=== PATIENT | female | born 1945 | race Caucasian/White ===

== ENCOUNTER → 2023-06-12 12:46 | Outpatient (REF) | payer MEDICARE, OTHER, SELFPAY ==
[2023-06-12 16:11] LABS: Blood Urea Nitrogen 29 mg/dl (7-17); Calcium 9.2 mg/dl (8.4-10.2); Carbon Dioxide 32 mmol/L (22-30); Chloride 99 mmol/L (98-107); Glucose 129 mg/dl (70-99); Potassium 4.3 mmol/L (3.5-5.1); Sodium 137 mmol/L (135-145); eGFR > 60.00
[2023-06-12 16:45] LABS: Urine Protein < 5 mg/dl
== END ==
LOC: HWLAB 12:46
PROVIDERS: ATTENDING PHYSICIAN Specialist; FAMILY PHYSICIAN Internal Medicine Rheumatology
DX: R79.89 Other specified abnormal findings of blood chemistry (principal); M54.2 Cervicalgia
CPT/HCPCS: 36415; 72050; 80048; 82570; 84156

== ENCOUNTER → 2024-03-26 10:30 | Outpatient (REF) | payer MEDICARE, OTHER, SELFPAY | LOC: MRI 3T 10:30 | PROVIDERS: ATTENDING PHYSICIAN Internal Medicine Rheumatology; FAMILY PHYSICIAN Family Medicine | DX: M54.2 Cervicalgia (principal) | CPT/HCPCS: 72141 ==

== ENCOUNTER 2024-04-28 13:43 | Emergency (ER) | payer MEDICARE, OTHER, SELFPAY ==
[2024-04-28 13:50] VITALS: BP 117/65
[2024-04-28 14:27] LABS: % Basophils 0.8 % (0-2); % Eosinophils 1.8 % (0-6); % Immature Granulocytes 0.3 % (0-0.5); % Lymphocytes 48.4 % (20.5-51.1); % Monocytes 8.4 % (1.7-9.3); % Neutrophils 40.3 % (42.2-75.2); Absolute Basophils 0.1 10^3/uL (0-0.2); Absolute Eosinophils 0.1 10^3/uL (0-0.7); Absolute Lymphocytes 3.7 10^3/uL (1.2-3.4); Absolute Monocytes 0.6 10^3/uL (0.1-0.6); Absolute Neutrophils 3.1 10^3/uL (1.4-6.5); Hematocrit 38.2 % (37.0-47.0); Hemoglobin 12.2 g/dL (12.0-16.0); Mean Corp Hgb Conc. 31.9 g/dL (33.0-37.0); Mean Corpuscular Hgb 31.2 pg (27.0-31.0); Mean Corpuscular Volume 97.7 fL (81.0-99.0); Mean Platelet Volume 9.2 fL (7.4-10.4); Nucleated Red Blood Cells % 0 %; Platelet Count 257 10^3/uL (130-400); Red Blood Cell Count 3.91 10^6/uL (4.20-5.40); Red Cell Dist. Width 13.2 % (11.5-14.5); White Blood Cell Count 7.6 10^3/uL (4.8-10.8)
[2024-04-28 14:32] LABS: Glucose - Point of Care 100 mg/dl (70-99)
[2024-04-28 14:44] LABS: ALT (SGPT) 12 U/L (0-35); AST (SGOT) 19 U/L (14-36); Albumin 4.3 g/dl (3.5-5.0); Alkaline Phosphatase 52 U/L (38-126); Blood Urea Nitrogen 26 mg/dl (7-17); Calcium 9.4 mg/dl (8.4-10.2); Carbon Dioxide 32 mmol/L (22-30); Chloride 98 mmol/L (98-107); Glucose 139 mg/dl (70-99); Potassium 4.7 mmol/L (3.5-5.1); Sodium 139 mmol/L (135-145); Total Bilirubin 0.9 mg/dl (0.2-1.3); Total Protein 6.9 g/dl (6.3-8.2); eGFR > 60.00
[2024-04-28 15:24] VITALS: BP 128/63
--- NOTE | 2024-04-28 16:41 | ED.GENMED ---
History of Present Illness
General
Chief Complaint: Fainting/Passed Out
Time Seen by Provider: 04/28/24 15:39
History of Present Illness
History of Present Illness:
79-year-old female with history of gkd-woilmyp-hveoxusjv diabetes and hypertension presents to the emergency department for evaluation of headaches as well as left hip pain after a fall 3 days ago. States she got up at night to use the restroom and
may have lost consciousness, fell to the ground and hit her face off of porcelain tile. She has had headaches since but denies any vision changes, neck pain, or vomiting. She is also complaining of left hip pain, bilateral total hip replacements
done in 2008 by [facility]. She is able to ambulate with walker assistance
Past History
Past History
ED Past Medical History: NIDDM
Review of Systems
Review of Systems
Allergies reviewed?: Yes
All Other Systems: ROS reviewed and negative except as documented in HPI and ROS
Phy Exam
Physical Exam
Physical Exam:
GEN: Well appearing, NAD, WDWN
HEENT: Mild ecchymosis above the right orbit with no deformity, oral mucosa moist, no scleral icterus, no nasal congestion
Cardiac: Regular rate
Lung: No respiratory distress, no tachypnea
MSK: No gross deformity or injuries. Left hip range of motion is normal, mild greater trochanteric tenderness on the left
Skin: Good color, no pallor or jaundice, no rashes
Neuro: AO x3; CN II-XII grossly intact. BUE strength 5/5 in all green, sensation intact and symmetric. BLE strength 5/5 in all green, sensation intact and symmetric
Psych: Calm, cooperative
Course
Orders/Labs/Results
Orders:
Orders
04/28/24 13:56
Electrocardiogram (*1) Urgent
Reason for Study: Chest Pain
EKG- Treatment ONCE
CR Hip - LT w/wo Pel 2-3 Vw* Urgent
Comment:
Reason For Exam: fall
Include a pelvis x-ray?: Yes
04/28/24 14:01
Complete Blood Count/With Diff Urgent
Comprehensive Metabolic Panel Urgent
04/28/24 16:12
CT Head W/o Iv Contrast Urgent
Comment:
Reason For Exam: fall head injury
Abnormal Lab Results
04/28/24 04/28/24
14:01 14:30
RBC 3.91 L 10^6/uL
(4.20-5.40)
MCH 31.2 H pg
(27.0-31.0)
MCHC 31.9 L g/dL
(33.0-37.0)
Absolute Lymphs (auto) 3.7 H 10^3/uL
(1.2-3.4)
Neutrophils % 40.3 L %
(42.2-75.2)
Carbon Dioxide 32 H mmol/L
(22-30)
BUN 26 H mg/dl
(7-17)
Glucose 139 H mg/dl
(70-99)
POC Glucose 100 H mg/dl
(70-99)
04/28/24 14:01
04/28/24 14:01
Vital Signs
Initial and Last Documented VS:
Initial Vital Signs
Temp Pulse Resp BP Pulse Ox
98.1 F 84 20 117/65 97
04/28/24 13:50 04/28/24 13:50 04/28/24 13:50 04/28/24 13:50 04/28/24 13:50
Last Documented Vital Signs
Temp Pulse Resp BP Pulse Ox
98.1 F 85 18 130/64 96
04/28/24 13:50 04/28/24 17:12 04/28/24 17:12 04/28/24 17:12 04/28/24 17:12
MDM/Problems Addressed
MDM/Problems Addressed:
CT of the head is negative for acute intracranial hemorrhage. X-ray of the left hip does show a mild periprosthetic fracture. Images were reviewed with orthopedics on-call who advises patient can perform weightbearing as tolerated and follow-up
with outpatient orthopedics for reevaluation
*Critical Care Note
Total Time (30-74mins, 75-104mins- exclusive of procedures): Not Applicable
ED Attending Note
-
Portions of this chart may have been created with voice recognition software.� Occasional wrong word or��sound alike� substitutions may have occurred due to the inherent limitations of voice recognition software.
Discharge Plan
Departure
Patient Disposition: Home (Routine Discharge)
Date of Disposition: 04/28/24
Time of Disposition: 16:56
Patient with high blood pressure during this ER visit?: No
Discharge Problem:
Periprosthetic fracture around internal prosthetic left hip joint
Instructions: Anterior Total Hip Exercises
Prescriptions:
New
diclofenac sodium 75 mg tablet,delayed release (DR/EC)
75 mg PO BID Qty: 14 0RF
Referrals:
Ramses Martinez DO [Family Provider] -
Héctor Ferreira MD [Active] -
Activity Restrictions/Additional Instructions:
Call the [facility] team tomorrow for follow up appointment
Interventions
Interventions:
*Risk Screen - Suicide Last Done: 04/28/24 13:50
*General Assessment Last Done: 04/28/24 13:50
*Neglect/Abuse Screening Last Done: 04/28/24 13:50
*ED COVID-19 Vaccine History Last Done: 04/28/24 14:34
*Nursing Disposition Last Done: 04/28/24 17:12
ED- Cardiac Assessment Last Done: 04/28/24 14:36
ED-Musculoskeletal Assessment Last Done: 04/28/24 14:36
ED- Neurological Assessment Last Done: 04/28/24 14:36
ED-Skin Assessment Last Done: 04/28/24 14:36
Discharge Date and Time
Discharge Date/Time: 04/28/24 17:12
Print Language: TELUGU
[2024-04-28 17:12] VITALS: BP 130/64
== END 2024-04-28 17:12 | disposition home or self-care (01) ==
LOC: EMR 13:43
PROVIDERS: Emergency Medicine; EMERGENCY PHYSICIAN Student in an Organized Health Care Education/Training Program; FAMILY PHYSICIAN Family Medicine
DX: M97.02XA Periprosthetic fracture around internal prosthetic left hip joint, initial encounter (principal); W19.XXXA Unspecified fall, initial encounter; E11.9 Type 2 diabetes mellitus without complications; I10 Essential (primary) hypertension
CPT/HCPCS: 99284; 70450; 73502; 80053; 82962; 85025; 93005

== ENCOUNTER 2024-09-15 07:50 | Inpatient (IN) | payer MEDICARE, OTHER, SELFPAY ==
[2024-09-14 17:16] VITALS: BP 152/93
[2024-09-14 17:32] VITALS: BMI 47.2
[2024-09-14 18:01] LABS: Hematocrit 36.5 % (37.0-47.0); Hemoglobin 12.1 g/dL (12.0-16.0); Mean Corp Hgb Conc. 33.2 g/dL (33.0-37.0); Mean Corpuscular Hgb 31.3 pg (27.0-31.0); Mean Corpuscular Volume 94.3 fL (81.0-99.0); Mean Platelet Volume 9.3 fL (7.4-10.4); Platelet Count 202 10^3/uL (130-400); Red Blood Cell Count 3.87 10^6/uL (4.20-5.40); Red Cell Dist. Width 14.3 % (11.5-14.5); White Blood Cell Count 6.2 10^3/uL (4.8-10.8)
[2024-09-14 18:13] LABS: ALT (SGPT) 16 U/L (0-35); AST (SGOT) 21 U/L (14-36); Alkaline Phosphatase 50 U/L (38-126); Blood Urea Nitrogen 28 mg/dl (7-17); Carbon Dioxide 26 mmol/L (22-30); Chloride 107 mmol/L (98-107); Estimated Creatinine Clearance 72 ml/min; Glucose 137 mg/dl (70-99); Potassium 4.3 mmol/L (3.5-5.1); Sodium 139 mmol/L (135-145); Total Bilirubin 1.1 mg/dl (0.2-1.3); Total Protein 6.4 g/dl (6.3-8.2); eGFR > 60.00
[2024-09-14 18:21] LABS: % Basophils 0.5 % (0-2); % Eosinophils 1.9 % (0-6); % Immature Granulocytes 0.3 % (0-0.5); % Lymphocytes 51.1 % (20.5-51.1); % Monocytes 8.9 % (1.7-9.3); % Neutrophils 37.3 % (42.2-75.2); Absolute Eosinophils 0.1 10^3/uL (0-0.7); Absolute Lymphocytes 3.2 10^3/uL (1.2-3.4); Absolute Monocytes 0.6 10^3/uL (0.1-0.6); Absolute Neutrophils 2.3 10^3/uL (1.4-6.5); Nucleated Red Blood Cells % 0 %
[2024-09-14 18:23] LABS: NT-proBNP 2150 pg/ml; Troponin I < 0.012 ng/ml
--- NOTE | 2024-09-14 18:31 | ED.GENMED ---
History of Present Illness
General
Chief Complaint: Breathing Problem
Source: patient and spouse
Exam Limitations: none
Time Seen by Provider: 09/14/24 17:36
Nursing documentation reviewed up to this point in time: agreed with
History of Present Illness
History of Present Illness:
79-year-old female hypertensive diabetic chronic pain syndrome presents with shortness of breath dyspnea on exertion orthopnea, onset a week or 2 ago, worsened today she called her prior revenue specialist unable to be seen in 4 months, no chest pain but
does have shortness of breath with any exertion, leg edema and weight gain not currently on a diuretic, not currently on a blood pressure pill, patient is having intermittent fast and slow heart rates no history of AF
Past History
Past History
ED Past Medical History: HTN and NIDDM; Negative Arrthythmia or Valvular disease
Social History
Tobacco: Non-smoker
Alcohol: None
Drug: None
Personal:
Living: with family
Employment: Retired
Review of Systems
Review of Systems
All Other Systems: Not applicable
Constitutional: Reports fatigue; Denies fever
Respiratory: Reports cough and trouble breathing
ABD/GI: Reports no symptoms; Denies abdominal pain
Musculoskeletal: Reports edema
Skin: Reports no symptoms
Neurological: Reports no symptoms
Endocrine: Reports no symptoms
Hematologic/Lymphatic: Reports no symptoms
Psychiatric: Reports no symptoms
Phy Exam
Physical Exam
Physical Exam:
Physical Exam
General: 79-year-old female sitting upright coughing close distant
Neck: JVD
Heart: Regular systolic ejection
Lungs: Bibasilar crackle
Abdomen: Nontender
Neuro: alert and oriented. no focal neurological deficits
Skin: no rash
Psychiatric: well kept. interactive and cooperative
Extremities: Edema is present
Scores
Heart Failure Risk
Heart Failure Risk Score: Yes
History of Stroke or TIA: No
History of intubation for respiratory distress: No
Heart rate on ED arrival >/= 110: Yes
SaO2 <90% on arrival on room air: No
HR >/=110 during 3min walk test (or too ill to perform test): Yes
ECG has acute ischemic changes: No
Urea >/=12mmol/L (BUN 33.6mg/dL): No
Serum CO2>/=35mmol/L: No
Troponin I or T elevated to DC Level (0.4mg/dL): No
NT-proBNP >/=5,000ng/L (5,000pg/ml): No
HF Risk Score: 2
Admission Status: MEDIUM RISK 9.2% Consider observation or discharge to home with homecare & f/u visit to PCP/Tube Drawing Supervisor, or SNF for treatment
Course
Orders/Labs/Results
Orders:
Orders
09/14/24 17:12
Electrocardiogram (*1) Urgent
Reason for Study: Tachycardia
EKG- Treatment ONCE
09/14/24 17:35
CR Chest - 2 Views Urgent
Comment:
Reason For Exam: soob
09/14/24 17:50
Complete Blood Count/With Diff Urgent
Comprehensive Metabolic Panel Urgent
NT-proBNP Urgent
Troponin I Urgent
09/14/24 18:24
Furosemide [Lasix] 60 mg IV NOW STA
Abnormal Lab Results
09/14/24
17:50
RBC 3.87 L 10^6/uL
(4.20-5.40)
Hct 36.5 L %
(37.0-47.0)
MCH 31.3 H pg
(27.0-31.0)
Neutrophils % 37.3 L %
(42.2-75.2)
BUN 28 H mg/dl
(7-17)
Glucose 137 H mg/dl
(70-99)
09/14/24 17:50
09/14/24 17:50
Vital Signs
Initial and Last Documented VS:
Initial Vital Signs
Temp Pulse Resp BP Pulse Ox
98.2 F 92 16 152/93 94
09/14/24 17:16 09/14/24 17:16 09/14/24 17:16 09/14/24 17:16 09/14/24 17:16
Last Documented Vital Signs
Temp Pulse Resp BP Pulse Ox
98.2 F 77 24 152/93 97
09/14/24 17:16 09/14/24 18:13 09/14/24 18:00 09/14/24 17:16 09/14/24 18:00
MDM/Problems Addressed
Differential Diagnosis Includes:
Heart failure valvulopathy arrhythmia pneumonia anemia doubt PE
MDM/Problems Addressed:
Shortness of breath
Chronic conditions affecting care: DM and HTN
Acute Exacerbation and/or Progression of Chronic Illness: DM and HTN
*Radiology
Radiology exam reviewed: preliminary read by ED provider
*Pulse Oximetry
Patient hypoxic: no
*EKG
Interpreted by ED Provider?: Yes
Interpretation: abnormal
Rate: tachycardiac
Rhythm: sinus
QRS Pattern: normal QRS
Ischemia: non-specific ST changes
*In Flight Refueling System Repairer Interpretation
Rate: tachycardiac
Interpretation: abnormal
Heart Rate: 130
Rhythm: sinus
*Critical Care Note
Total Time (30-74mins, 75-104mins- exclusive of procedures): 12
Update Note
Update Note:
Update suspect she is volume overloaded plus minus tachycardic at times, believe she requires admission for close cardiac monitoring, sideration for specialty consultation specialized testing,
ED Attending Note
-
Portions of this chart may have been created with voice recognition software.� Occasional wrong word or��sound alike� substitutions may have occurred due to the inherent limitations of voice recognition software.
Discharge Plan
Departure
Patient Disposition: Admit
Date of Disposition: 09/14/24
Time of Disposition: 18:35
Admit to: Telemetry
Presentation/result/management discussed w/ accepting MD/DO: Hospitalist
Patient with high blood pressure during this ER visit?: Yes
Condition: Fair
Discharge Problem:
Shortness of breath
Prescriptions:
No Action
diclofenac sodium 75 mg tablet,delayed release (DR/EC)
75 mg PO BID Qty: 14 0RF
pioglitazone 30 mg Tablet
30 mg PO DAILY
duloxetine 60 mg Capsule,Delayed Release(Dr/Ec)
60 mg PO DAILY
zolpidem 6.25 mg Tablet,Ext Release Multiphase
12.5 mg PO HS PRN (Reason: Insomnia)
Centrum Silver Women 8 mg iron-400 mcg-50 mcg Tablet
1 tab PO DAILY
Interventions
Interventions:
*Risk Screen - Suicide Last Done: 09/14/24 17:19
*General Assessment Last Done: 09/14/24 17:35
*Neglect/Abuse Screening Last Done: 09/14/24 17:19
*ED- Fall Risk Assessment Last Done: 09/14/24 17:35
*ED COVID-19 Vaccine History Last Done: 09/14/24 17:35
ED- Cardiac Assessment Last Done: 09/14/24 17:50
ED- Pulmonary Assessment Last Done: 09/14/24 17:50
Discharge Date and Time
Print Language: ROMANIAN
[2024-09-14 18:35] VITALS: BP 112/61
[2024-09-14] MEDS: LASIX 60 MG IV (18:39)
--- NOTE | 2024-09-14 18:49 | HPS.HSE ---
Family Physician
-
Family Physician: * NONE
Chief Complaint
-
exertional dyspnea
History of Present Illness
Patient is a 79-year-old female with past medical history significant for type 2 diabetes mellitus, insomnia, fibromyalgia, hypertension and Hx pancreatic cyst who presented to [facility] ED exertion dyspnea. Patient reports having exertional dyspnea and
induced cough when walking far for approximately 2 weeks. She also reports intermittent elevated HR. Patient denies any recent illness, fever, chills, chest pain, palpitations, nausea, vomiting, constipation, diarrhea and urinary symptoms.
Medical History
Past Medical History
Past Medical History: Reports Other
Additional Past Medical History:
type 2 diabetes mellitus
insomnia
fibromyalgia
hypertension
Hx pancreatic cyst
Past Surgical History: Reports Other
Additional Past Surgical History:
Bilateral Total Hip Replacement(2008)
Caesarean Section
Cholecystectomy
Sinus Surgery
Endo-biopsy
Social History
Tobacco: Former Smoker (smoked late teens early 20s, quit at age 21 )
Alcohol: None
Drug: None
Personal:
Living: With Family
Employment: Retired
Family History
Family History: Other (Mother: melanoma; Father: [place]; Sister: melanoma and breast cancer )
Allergies / Home Medications
Allergies reflects when Allergies were last updated in [employer].
Home Medications with original date entered in [employer]
Allergy/Medication List:
Allergies
Allergy/AdvReac Type Severity Reaction Status Date / Time
No Known Allergies Allergy Verified 09/14/24 17:30
Home Medications
acetaminophen 325 mg tablet (Tylenol) 650 mg PO Q6HPRN PRN MILD PAIN 09/14/24
duloxetine 60 mg capsule,delayed release 60 mg PO DAILY 09/14/24
magnesium oxide 200 mg PO DAILY 09/14/24
glakafon-brok-lnco 8 mg-folic 400 mcg-K 50 mcg-lutein 300 mcg tablet (Centrum Silver Women) 1 tab PO DAILY 09/14/24
pioglitazone 30 mg tablet 30 mg PO DAILY 09/14/24
zolpidem 6.25 mg tablet,extended release,multiphase 12.5 mg PO HSPRN PRN Insomnia 09/14/24
Review of Systems
-
Respiratory: Reports Cough (dry cough with exertion ) and Trouble Breathing (exertional dyspnea)
Cardiac: Reports Other (elevated HR )
Physical Exam
Vital Signs
Vital Signs
Temp Pulse Resp BP Pulse Ox
98.2 F 71 24 112/61 97
09/14/24 17:16 09/14/24 18:39 09/14/24 18:00 09/14/24 18:39 09/14/24 18:00
Physical Exam
General: Well Developed, Well Nourished, No Apparent Distress, Comfortable, Conversant and Morbidly Obese
HEENT: NormoCephalic, Moist mucous membranes, Atraumatic, [place] Conjunctivae, Nose Appears Normal and Ears Appear Normal
Respiratory: Clear and Other (dyspnea with minimal exertion )
Cardiac: S1/S2, Irregular Rhythm and Tachycardia
Breast: Deferred by me
GI: Soft, Non Tender, Non Distended and Normal Bowel Sounds; No Organomegaly
Rectal: Deferred by Provider
Genito-urinary: Deferred by me
Musculoskeletal: No Clubbing, No Cyanosis, Edema, Left Lower Extremity and Edema, Right Lower Extremity
Skin: IV/Catheter Site
Neuro: Awake, Alert, AO x 3 and Nonfocal/grossly intact
Psych: Calm and Intact Judgment/Insight
Laboratory Results
-
09/14/24 17:50
09/14/24 17:50
Laboratory Results
Total Bilirubin 1.1 mg/dl (0.2-1.3) 09/14/24 17:50
AST 21 U/L (14-36) 09/14/24 17:50
ALT 16 U/L (0-35) 09/14/24 17:50
Alkaline Phosphatase 50 U/L (38-126) 09/14/24 17:50
Troponin I < 0.012 ng/ml 09/14/24 17:50
Data Reviewed
-
Diagnostic Radiology: Report Reviewed by me (CXR: No acute cardiopulmonary process.)
Medical Tests (Nuc Med, Echo, EKG etc): Report Reviewed by me (EKG: SINUS TACHYCARDIA WITH PREMATURE ATRIAL COMPLEXES OTHERWISE NORMAL ECG)
Lab Data: Labs Reviewed by me (BNP 2149)
Impression/Plan
-
IMPRESSION/PLAN:
#exertional dyspnea
BNP 2149
EKG: SINUS TACHYCARDIA WITH PREMATURE ATRIAL COMPLEXES
OTHERWISE NORMAL ECG
CXR: No acute cardiopulmonary process.
- Admit to telemetry
- Consult cardiology (saw Dr. Mckeon approx 3 years ago)
- ECHO in AM
- IV Lasix BID
#type 2 diabetes mellitus
- continue pioglitazone
#insomnia
- continue zolpidem
#fibromyalgia
- continue duloxetine
#hypertension
controlled with diet and exercise
#Hx pancreatic cyst
follows with Dr. Perdomo @ [facility]
- continue to follow up out patient
Code status: full code
DVT prophylaxis: Lovenox sq
--- NOTE | 2024-09-14 20:13 | W.PN.UPDATE ---
Update Note
Progress Note Update
Patient seen in conjunction with JOSIE. I concur with findings on history and physical. I agree with the assessment and plan.
This is a 79-year-old female with past medical history only notable for fibromyalgia and diabetes who presents to the emergency department with episodes of dyspnea on exertion.
Patient unable to specify onset of symptoms but states over the last few days she has had more dyspnea on exertion. Anytime she walks across the room she feels completely out of breath. When she has a dyspnea then she has a nonproductive cough
that then subsides. She reports increased lower extremity edema on top of her chronic apparent lymphedema. She is not aware of any weight gain. Denies any chest pain. Denies pleuritic chest pain cough fevers or chills. She denies any recent
travels or sick contact. Patient reports a history of palpitations over the last few days and reported that when she came to the emergency department heart rate was very high which was the actual problem for her to come to the ED. Patient denies
any prior cardiac history. She has a father with MT in his 80s.
In the emergency department she was afebrile, blood pressure was 110/60 with a pulse of 71 and satting 97% on room air. Chest x-ray shows no acute infiltrate. ECG with sinus tachycardia with very frequent PACs.
Troponin was negative. BNP was elevated at 2000. CBC was unremarkable. Electrolyte BUN/creatinine were all normal.
On examination she is obese but otherwise well-appearing with nonpitting bilateral lower extremity edema. Clear lungs, no murmurs rubs or gallops on auscultation. The auscultation of the heart was regular.
Assessment and plan
79-year-old with no prior cardiac history presenting with palpitations, dyspnea on exertion, some shortness of breath and lower extremity edema with elevated BNP. She has clear lungs on chest x-ray and auscultation. ECG with sinus tach and sinus
arrhythmia. Clinical picture consistent with some subacute CHF. No evidence of pneumonia. Unlikely any DVT. Cannot rule out underlying supraventricular tachycardia such as A-fib flutter.
- Will admit to telemetry observation
- Status post Lasix 60 mg in the ED, continue with 20 mg IV twice daily for now
- Echo, TSH, cardiovascular panel in a.m.
- Daily weights, ins and outs
- Additional GDMT such as beta-blockade, GREGORY/ARB/SGLT2 inhibitor depending on echo and blood pressure
- Consult cardiology
DVT prophylaxis�Lovenox subcu
CODE STATUS�full code
[2024-09-14 20:45] VITALS: BP 118/50
[2024-09-14 20:48] VITALS: BP 118/50
[2024-09-14 21:13] VITALS: BMI 47.2
[2024-09-14 21:40] VITALS: BP 136/59; BMI 45.6
[2024-09-14] MEDS: AMBIEN 10 MG PO (22:04)
[2024-09-14 23:00] VITALS: BP 145/97
[2024-09-15 00:37] LABS: Hemoglobin 12.5 g/dL (12.0-16.0); Mean Corp Hgb Conc. 32.1 g/dL (33.0-37.0); Mean Corpuscular Hgb 30.8 pg (27.0-31.0); Mean Corpuscular Volume 96.1 fL (81.0-99.0); Mean Platelet Volume 9.8 fL (7.4-10.4); Platelet Count 215 10^3/uL (130-400); Red Blood Cell Count 4.06 10^6/uL (4.20-5.40); Red Cell Dist. Width 14.2 % (11.5-14.5); White Blood Cell Count 6.7 10^3/uL (4.8-10.8)
[2024-09-15 01:52] LABS: Blood Urea Nitrogen 26 mg/dl (7-17); Calcium 9.2 mg/dl (8.4-10.2); Carbon Dioxide 30 mmol/L (22-30); Chloride 104 mmol/L (98-107); Estimated Creatinine Clearance 70 ml/min; Glucose 148 mg/dl (70-99); Magnesium 1.7 mg/dl (1.6-2.3); Potassium 3.7 mmol/L (3.5-5.1); Sodium 142 mmol/L (135-145); eGFR > 60.00
[2024-09-15 03:00] VITALS: BP 116/47
[2024-09-15 05:51] VITALS: BMI 44.8
[2024-09-15] MEDS: ACTOS 30 MG PO (07:30)
[2024-09-15] MEDS: CYMBALTA DELAYED RELEASE 60 MG PO (07:30)
[2024-09-15] MEDS: THERAGRAN 1 TABLET PO (07:31)
[2024-09-15] MEDS: MAG-TAB SR 84 MG PO (07:31)
[2024-09-15 08:02] VITALS: BP 112/64
[2024-09-15 08:22] LABS: Blood Urea Nitrogen 23 mg/dl (7-17); Calcium 9.2 mg/dl (8.4-10.2); Carbon Dioxide 31 mmol/L (22-30); Chloride 105 mmol/L (98-107); Estimated Creatinine Clearance 62 ml/min; Glucose 120 mg/dl (70-99); HDL Cholesterol 45 mg/dl; LDL Cholesterol, Calculated 97 mg/dl; Potassium 3.6 mmol/L (3.5-5.1); Sodium 141 mmol/L (135-145); Total Cholesterol 158 mg/dl (50-199); Triglyceride 82 mg/dl (10-149); Very Low Density Lipoprotein 16 mg/dl (0-30); eGFR > 60.00
[2024-09-15 08:30] LABS: TSH 5.17 uIU/ml (0.47-4.68)
[2024-09-15] MEDS: LASIX 20 MG IV (08:47)
--- NOTE | 2024-09-15 08:54 | CON.CAR ---
Addendum entered and electronically signed by Rene Casanova MD 09/15/24 16:26:
I saw and examined the patient.
The SUPERVISOR ASSEMBLY DEPARTMENT's note was reviewed and I agree with the note.
Comment: 79F with NIDDM, fibromyalgia, pancreatic cyst, microischemic nephropathy (followed by Dr. Isabel), JERRY on CPAP and former smoker who presented to the emergency department with a chief complaint of shortness of breath. She states she is
still feeling winded walking to the bathroom, this has not improved despite lasix. On exam she has no jvd rrr normal s1/s2, no m/r/g. She has clear lungs, ext soft without edema. Admission cxr does have some cephalization. Tele shows sinus with
frequent pacs and runs of afib with rvr. Echo is normal.
I suspect her symptoms are linked fib with rvr , but she denies palpitations. She may have initially had mild pulm edema (Acute heart failure) due to arrhythmia but no further e/o volume overload. She is agreeable to DOAC. We will uptitrate her bb
dose as QTC limits our ability to start sotalol or dofetilide. Will try to avoid amiodarone. Hopefully given her elevated A1c she would consider a glp 1 ra and lose weight. She can consider PVI in the future.
Original Note:
Consultation
Consultation Request
Date/Time Consultation Requested: 09/14/2024 21:00
Date/Time Consultation Performed: 09/15/2024 09:20
Requesting Provider: JOSIE Lee
Performing Provider: JOSIE Wayne for Dr. Casanova
Reason for Consultation: Shortness of breath
Medical History
-
Chief Complaint: Shortness of breath
History of Present Illness:
Selena Person is a 79-year-old female with NIDDM, fibromyalgia, pancreatic cyst, microischemic nephropathy (followed by Dr. Isabel), JERRY on CPAP and former smoker who presented to the emergency department with a chief complaint of shortness of
breath. Her shortness of breath started greater than 1 week ago. It has been slowly getting worse. She denies PND and orthopnea but endorses SANCHEZ. She does not have any shortness of breath at rest, only with exertion. She received furosemide 60
mg IV in the emergency department last evening. Her shortness of breath has improved. She is having paroxysmal atrial fibrillation on telemetry. When she ambulates rates are well above 140 bpm.
Past Medical History
Past Medical History: Fibromyalgia, NIDDM, Renal Failure (Microischemic nephropathy) and Other (Pancreatic cyst, JERRY on CPAP)
Past Surgical History: Cholecystectomy, Gynecological and Orthopedic
Social History
Tobacco: Former Smoker
Employment: Retired
Family History
Family History: Reviewed & Not Pertinent
Allergies / Home Medications
Allergy/AdvReac Type Severity Reaction Status Date / Time
No Known Allergies Allergy Verified 09/14/24 17:30
�Medication �Instructions �Recorded �Confirmed �Type
acetaminophen 325 mg tablet 650 mg PO Q6HPRN PRN MILD PAIN 09/14/24 09/14/24 History
(Tylenol)
duloxetine 60 mg capsule,delayed 60 mg PO DAILY Fibromyalgia 09/14/24 09/14/24 History
release
magnesium oxide 200 mg PO DAILY Supplement 09/14/24 09/14/24 History
xhhjhuzw-vazr-uwxn 8 mg-folic 400 1 tab PO DAILY Supplement 09/14/24 09/14/24 History
mcg-K 50 mcg-lutein 300 mcg tablet
(Centrum Silver Women)
pioglitazone 30 mg tablet 30 mg PO DAILY Diabetes 09/14/24 09/14/24 History
zolpidem 6.25 mg tablet,extended 12.5 mg PO HSPRN PRN Insomnia 09/14/24 09/14/24 History
release,multiphase
Review of Systems
-
History Source: Patient
All other systems: Negative unless noted
Constitutional: No Symptoms
EENT: No Symptoms
Respiratory: Trouble Breathing
Cardiac: No Symptoms
Abdomen/GI: No Symptoms
: No Symptoms
Musculoskeletal: No Symptoms
Skin: No Symptoms
Neurological: No Symptoms
Endocrine: No Symptoms
Hematologic/Lymphatic: No Symptoms
Physical Exam
Vital Signs
Temp Pulse Resp BP Pulse Ox
97.8 F 80 18 112/64 98
09/15/24 08:02 09/15/24 08:02 09/15/24 08:02 09/15/24 08:02 09/15/24 08:02
Lab Results
09/15/24 00:15
09/15/24 06:53
Troponin I < 0.012 ng/ml 09/14/24 17:50
Vqx-I-Yehlihijoin Pept 2150 pg/ml 09/14/24 17:50
Physical Exam
General: Well Developed, Well Nourished, No Apparent Distress and Comfortable
HEENT: Normocephalic, Anicteric and Moist Mucous Membranes
Respiratory: Clear and Non Labored Respirations
Cardiac: S1/S2 and Irregular Rhythm
Breast: Deferred by me
GI: Soft, Non Tender, Non Distended and Normal Bowel Sounds
Rectal: Deferred by Provider
Genito-urinary: No Costovertebral Tender
Musculoskeletal: No Clubbing and No Cyanosis
Skin: Warm and Dry
Neuro: AO x 3
Hematologic/Lymphatic: No Lymphadenopathy
Psych: Calm
Impression / Plan
-
I/P: 79F with NIDDM, fibromyalgia, pancreatic cyst, microischemic nephropathy (followed by Dr. Isabel), JERRY on CPAP and former smoker who presented to the emergency department with a chief complaint of shortness of breath.
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 Benoit (last seen 2016)
HFpEF, acute
- proBNP 2150, chest x-ray stable, status post furosemide 60 mg IV in ER
- Stop furosemide 20 mg IV twice daily appears euvolemic
- Sweeney SGLT2i
- Echocardiogram today
Atrial fibrillation, paroxysmal
- She is in and out on telemetry, some of the rates are elevated, asymptomatic, started on beta-tom
- Oral Anticoagulation: Start apixaban 5 mg twice daily, case management to sweeney
- [id number]: Score at least 6 (Heart failure, HTN, age 75 or more, Diabetes Mellitus, female gender)
Tricuspid regurgitation, moderate in 2017
- Echocardiogram today
Abnormal TSH, T4 pending, per primary
HTN, off medications in the outpatient setting
Fibromyalgia
NIDDM with fasting hyperglycemia
Obesity, BMI >40, she would benefit from weight loss
JERRY on CPAP
Data Reviewed
-
EKG: Report Reviewed by me
Labs: Labs Reviewed by me
Old Records: Reviewed
--- NOTE | 2024-09-15 10:47 | W.PN.HOSP.TC ---
Today's Communication/Plan
-
see plan
Assessment / Plan
Assessment / Plan
Gen: NAD, AAOx3.
Eyes: EOMI, PERRLA, no scleral icterus.
Neck: supple.
CV: RRR, +S1/S2, no m/r/g.
Resp: CTAB, no rales, wheezes, or rhonchi.
Abd: +BS, soft, NT, ND
Skin: No rashes.
Neuro: CN 2-12 intact, non-focal.
Psych: Normal mood and affect.
CXR: No acute cardiopulmonary process.
Echo: Normal BiV sz/fxn, no RWMA. Mild concentric left ventricular hypertrophy. No significant valvular disease. Compared to previous echo 09/17/2016, the degree of tricuspid regurgitation has decreased from moderate.
SANCHEZ:
-proBNP 2150
-CXR without pulm edema
-echo above
-currently on 20mg IV BID
-question if SANCHEZ related to afib vs primary pulmonary in etiology. Will d/w cardiology after they see the pt.
Other problems:
DM2: Stop pioglitazone as it can cause/worsen CHF. SSI/accuchecks, check a1c
Insomnia: cont Ambien
Fibromyalgia: cont duloxetine
Essential hypertension: controlled with diet and exercise
h/o pancreatic cyst
FULL/Lovenox
Anticipated Discharge: Within 24 hours
Subjective/Interval History
-
Date of Service: September 15, 2024
No change in SANCHEZ.
Objective Data
-
Labs:
Laboratory Results
09/15/24 09/15/24 09/15/24
00:15 00:56 06:53
WBC 6.7
Hgb 12.5
Hct 39.0
Plt Count 215
Sodium Cancelled 142 141
Potassium Cancelled 3.7 3.6
Chloride Cancelled 104 105
Carbon Dioxide Cancelled 30 31 H
BUN Cancelled 26 H 23 H
Creatinine Cancelled 0.8 0.9
Glucose Cancelled 148 H 120 H
Calcium Cancelled 9.2 9.2
Vital Signs:
Vital Signs
Temp Pulse Resp BP Pulse Ox
97.8 F 80 18 112/64 95
09/15/24 08:02 09/15/24 08:02 09/15/24 08:02 09/15/24 08:02 09/15/24 10:19
I&O
09/14/24 09/15/24 09/16/24
06:59 06:59 06:59
Intake Total 240 / 240
Output Total 1100 / 1100
Balance -860 / -860
--- NOTE | 2024-09-15 11:28 | CM ---
Addendum entered by Isis Hobson 09/15/24 13:07:
CM consulted for cost of medications
Spoke w/ Héctor[facility] to review coverage and costs. All medications are covered under patient's rx plan, estimated co-pays are as follows:
Eliquis 30 days- $548.86, 90 days- $780.59
Jardiance 30 days- $552.79, 90 days- $793.89
Farxiga 30 days- $547.10, 90 days- $776.81
Ordering physician updated via TT
Original Note:
Initial assessment completed. Patient is a 79-year-old female with past medical history significant for type 2 diabetes mellitus, insomnia, fibromyalgia, hypertension and Hx pancreatic cyst who presented to [facility] ED exertion dyspnea.
Patient resides w/ spouse and son in a single story [facility] home- 1 small step to enter. Patient ambulates w/ a cane, has a CPAP that she doesn't always use. Independent w/ ADLs. No SNF hx, OP and home PT in the past after hip and knee
surgeries years ago.
Address, point of contact and insurance verified
PCP: Ramses Martinez
Pharmacy: [facility]
Spouse confirmed rx coverage through [employer]
Plan: Home, no needs anticipated
[2024-09-15 11:34] LABS: Glycohemoglobin (HgbA1c) 6.6 % (4.0-5.6)
[2024-09-15 11:57] LABS: Glucose - Point of Care 111 mg/dl (70-99)
[2024-09-15 12:04] VITALS: BP 112/82
[2024-09-15] MEDS: ELIQUIS 5 MG PO ×2 (12:13→19:45)
[2024-09-15] MEDS: TOPROL XL 25 MG PO ×2 (12:14→19:45)
[2024-09-15 16:08] VITALS: BP 118/59
--- NOTE | 2024-09-15 16:16 | DOWNTIME ---
There was a [employer] Downtime on 09/15/2024 from 1230 to 09/15/2024 at 1550. Downtime documentation of patient's care, including medication administrations, has been reconciled in the electronic record per guidelines. Refer to the
patient's paper chart under the miscellaneous tab to see printed paper medication records and downtime forms.
[2024-09-15 17:02] LABS: Glucose - Point of Care 103 mg/dl (70-99)
[2024-09-15] MEDS: TYLENOL 650 MG PO (17:02)
[2024-09-15 18:44] LABS: Total Thyroxine 7.15 ug/dl (5.5-11.0)
[2024-09-15 21:13] LABS: Glucose - Point of Care 126 mg/dl (70-99)
[2024-09-15] MEDS: AMBIEN 10 MG PO (23:00)
[2024-09-15 23:12] VITALS: BP 117/60
[2024-09-16] VITALS (8 sets, daily range): BP systolic 101–144; BP diastolic 41–81; O2SAT 93–95; BMI 44.6
--- NOTE | 2024-09-16 08:30 | W.PN.HOSP.TC ---
Today's Communication/Plan
-
d/c home if OK with cardiology
Assessment / Plan
Assessment / Plan
Gen: NAD, AAOx3.
Eyes: EOMI, PERRLA, no scleral icterus.
Neck: supple.
CV: RRR, +S1/S2, no m/r/g.
Resp: CTAB anteriorly, no rales, wheezes, or rhonchi.
Abd: +BS, soft, NT, ND
Skin: No rashes. No LE edema.
Neuro: CN 2-12 intact, non-focal.
Psych: Normal mood and affect.
CXR: No acute cardiopulmonary process.
Echo: Normal BiV sz/fxn, no RWMA. Mild concentric left ventricular hypertrophy. No significant valvular disease. Compared to previous echo 09/17/2016, the degree of tricuspid regurgitation has decreased from moderate.
Paroxysmal atrial fibrillation:
-presented with SANCHEZ
-proBNP 0
-CXR without pulm edema
-echo above
-was on Lasix 20mg IV BID, now stopped
-SANCHEZ likely related to afib with rapid rates with exertion. She may have had acute HFpEF on admission due to afib with RVR.
-cards following
-BB/eliquis started
-TSH 5.17, total T4 7.15, check fT4
Other problems:
DM2: a1c 6.6%. Pioglitazone stopped as it can cause/worsen CHF. SSI/accuchecks. Start Metformin.
Insomnia: cont Ambien
Fibromyalgia: cont duloxetine
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
h/o pancreatic cyst
JERRY on CPAP
Former smoker
FULL/Lovenox
Anticipated Discharge: Today
Subjective/Interval History
-
Date of Service: September 16, 2024
No new complaints.
Objective Data
-
Labs:
Laboratory Results
09/16/24
07:20
Sodium Pending
Potassium Pending
Chloride Pending
Carbon Dioxide Pending
BUN Pending
Creatinine Pending
Glucose Pending
Calcium Pending
Vital Signs:
Vital Signs
Temp Pulse Resp BP Pulse Ox
98 F 78 20 118/53 93
09/16/24 03:05 09/16/24 03:05 09/16/24 03:05 09/16/24 03:05 09/16/24 03:05
I&O
09/15/24 09/16/24 09/17/24
06:59 06:59 06:59
Intake Total 240 / 240 840 / 840
Output Total 1100 / 1100 1050 / 1050
Balance -860 / -860 -210 / -210
[2024-09-16 08:44] LABS: Glucose - Point of Care 118 mg/dl (70-99)
[2024-09-16] MEDS: ELIQUIS 5 MG PO ×2 (08:58→20:10)
[2024-09-16] MEDS: CYMBALTA DELAYED RELEASE 60 MG PO (08:58)
[2024-09-16] MEDS: MAG-TAB SR 84 MG PO (08:59)
[2024-09-16] MEDS: THERAGRAN 1 TABLET PO (08:59)
[2024-09-16] MEDS: FLUSH (NSS) 1 FLUSH IV (09:00)
[2024-09-16] MEDS: TOPROL XL 25 MG PO ×2 (09:00→20:10)
[2024-09-16] MEDS: COLACE 100 MG PO ×2 (09:22→20:11)
[2024-09-16 10:04] LABS: Blood Urea Nitrogen 32 mg/dl (7-17); Calcium 9.2 mg/dl (8.4-10.2); Carbon Dioxide 31 mmol/L (22-30); Chloride 104 mmol/L (98-107); Estimated Creatinine Clearance 62 ml/min; Glucose 129 mg/dl (70-99); Potassium 3.7 mmol/L (3.5-5.1); Sodium 142 mmol/L (135-145); eGFR > 60.00
[2024-09-16 11:41] LABS: Glucose - Point of Care 153 mg/dl (70-99)
--- NOTE | 2024-09-16 14:11 | W.PN.CD ---
Addendum entered and electronically signed by Thaddeus Mckeon MD 09/16/24 14:32:
Correction: [id number]: Score at least (HTN, age 75 or more, Diabetes Mellitus, female gender). No point for heart failure.
Original Note:
Today's Communication / Plan
-
Add dofetilide
Monitor tele for Torsades
Watch QTc
Home after 6 doses
Impression / Plan
-
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
Dyspne seems to be from ectopy and not heart failure
- No more diuresis
- Will monitor and add diuresis if needed,
Several atrial arrhythmias: PACs, PAT, PAFlutter (likely typical) and paroxysmal Atrial fibrillation
- Will starte dofetilid and continue metoprolol, will offer outpatient ablation consult
- Oral Anticoagulation: Start apixaban 5 mg twice daily, case management to sweeney => May need to move to generic Pradaxa for cost reasons
- [id number]: Score at least 6 (Heart failure, HTN, age 75 or more, Diabetes Mellitus, female gender)
Tricuspid regurgitation, moderate in 2017, mild now
Elevated (mildly) TSH, T4 pending, per primary
HTN, off medications in the outpatient setting
Fibromyalgia
NIDDM with fasting hyperglycemia
Obesity, BMI >40, she would benefit from weight loss
JERRY on CPAP
Subjective: Feeling OK at rest
Data:
Echo 09/15/2024:
Normal biventricular size and systolic function without regional wall motion
abnormality.
Mild concentric left ventricular hypertrophy.
No significant valvular disease.
Compared to previous echo 09/17/2016, the degree of tricuspid regurgitation has
decreased from moderate.
Med cost per case management:
'Spoke w/ Héctor/[employer] rep to review coverage and costs. All medications are covered under patient's rx plan, estimated co-pays are as follows:
Eliquis 30 days- $548.86, 90 days- $780.59
Jardiance 30 days- $552.79, 90 days- $793.89
Farxiga 30 days- $547.10, 90 days- $776.81'
Physical Exam
Vital Signs/Labs
Vital Signs
Temp Pulse Resp BP Pulse Ox
97.9 F 69 16 113/41 96
09/16/24 11:20 09/16/24 11:20 09/16/24 11:20 09/16/24 11:20 09/16/24 11:20
09/15/24 09/16/24 09/17/24
06:59 06:59 06:59
Actual Weight 114.577 kg 114.05 kg
09/15/24 00:15
09/16/24 07:20
Magnesium 1.7 mg/dl (1.6-2.3) 09/15/24 00:56
Triglycerides 82 mg/dl (10-149) 09/15/24 06:53
LDL Cholesterol, Calc 97 mg/dl 09/15/24 06:53
VLDL Cholesterol, Calc 16 mg/dl (0-30) 09/15/24 06:53
HDL Cholesterol 45 mg/dl 09/15/24 06:53
TSH 5.17 uIU/ml (0.47-4.68) H 09/15/24 06:53
09/14/24
17:50
Wfj-D-Ppgzionagji Pept 2150
LAB Results
09/14/24
17:50
Troponin I < 0.012
Physical Exam
Constitutional: No acute distress
EENT: Anicteric
Cardiovascular: Rhythm & rate is regular and Pedal edema is absent
Respiratory: Respiratory effort normal and Lungs clear to auscul.
GI: Soft and Distention absent
Neuro/Psych: AO x 3
Data Reviewed
-
Date of Service: September 16, 2024
--- NOTE | 2024-09-16 14:14 | W.CARD.TIKOS ---
Initiate Tikosyn
-
I verify that the patient has not taken any verapamil (Isoptin/Calan), ketoconazole (Nizoral), cimetidine (Tagamet), trimethoprim (Trimpex), trimethoprim/sulfamethoxazole (Bactrim), megesterol (Megace), prochlorperazine (Compazine),
hydrochlorothiazide (HCTZ), dolutegravir (Tivicay) or any Class I or Class III anti-arrhythmic within the last three days
AND
I verify that the patient has not taken amiodarone within the last THREE months, or that the patient's amiodarone plasma concentration is <0.3 mcg/mL.
Creatinine 0.9 mg/dL (0.6-1.0) 09/16/24 07:20
Estimated Creat Clear 62 ml/min 09/16/24 07:20
Does patient have a Ventricular Conduction Abnormality: No
I have assessed the baseline QTc interval (using QT for heart rate less than 60 bpm) and deemed the patient is appropriate for Dofetilide therapy. I understand that Tikosyn is contraindicated if the QTc is >440msec (500msec in patients with
ventricular conduction abnormalities).
Baseline QTc (in msec): 422
QTc interval is greater than 440msec without conduction abnormality OR greater than 500msec with a conduction abnormality, but acceptable to proceed per Cardiology attending.
Ordering Physician: Thaddeus Mckeon
[2024-09-16 15:16] LABS: Free T4 1.28 ng/dl (0.78-2.19)
[2024-09-16 16:56] LABS: Glucose - Point of Care 114 mg/dl (70-99)
[2024-09-16] MEDS: GLUCOPHAGE 500 MG PO (16:58)
--- NOTE | 2024-09-16 18:30 | PTCARENOTE ---
Provided report to Christin in IVU. Transported pt to rm 2247 at this time with belongings and chart. Meds tubed to unit.
[2024-09-16 18:57] LABS: Hepatitis C Antibody Negative (Negative)
[2024-09-16] MEDS: TIKOSYN 500 MCG PO (20:10)
[2024-09-16 22:33] LABS: Glucose - Point of Care 134 mg/dl (70-99)
[2024-09-16] MEDS: AMBIEN 10 MG PO (22:42)
[2024-09-17] VITALS (7 sets, daily range): BP systolic 104–150; BP diastolic 52–99; BMI 44.2
--- NOTE | 2024-09-17 01:11 | PTCARENOTE ---
Pt was transferred from 413 into 2247 for Tikosyn loading. Pt is AAOx3 SR with PVC's VSS. Call mccloud within reach. Post Tikosyn EKG QTc 489.
[2024-09-17 03:34] LABS: Blood Urea Nitrogen 35 mg/dl (7-17); Calcium 9.4 mg/dl (8.4-10.2); Carbon Dioxide 28 mmol/L (22-30); Chloride 103 mmol/L (98-107); Estimated Creatinine Clearance 62 ml/min; Glucose 130 mg/dl (70-99); Potassium 3.6 mmol/L (3.5-5.1); Sodium 138 mmol/L (135-145); eGFR > 60.00
--- NOTE | 2024-09-17 07:41 | W.PN.CD ---
Today's Communication / Plan
-
Continue Dofetilide per protocol
Watch QTc
Serial EKGs
Home only several hours after 6th dose of Dofetilide
Elective ablation is a good alternative over prison dofetilide and I discussed that today and will again in the office
I reviewed AFib risk factor modification: use her CPAP for sleep apnea, lose weight, exercise, avoid ETOH (she is not a drinker)
I reviewed signs/symptoms of bleeding needing evaluation
If Dofetilide not tolerated than would stop that med and 12 hours later start Amio 400 BID for 14 days then 200 daily with plans for ablation evaluation
Impression / Plan
-
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
Dyspnea seems to be from ectopy and not heart failure
- No more diuresis
- Will monitor and add diuresis if needed
Several atrial arrhythmias: PACs, PAT, PAFlutter (likely typical) and paroxysmal Atrial fibrillation
- Rhythm: Loading Dofetilide, 1 dose so far. Tele w/o Torsades/PVCs/Giovani. Still with lots of short salvos of PAT/PAF with and w/o RBBB aberration. EKG QTc OK.
- Rate: No signif giovani. PAT/PAF is still fast but hope dofetilide suppresses well. Do not want giovani with dofetilide, for now continue current metoprolol
- Oral Anticoagulation: On apixaban 5 mg BID, may need to move to generic Pradaxa for cost reasons
- [id number]: Score at least 5 (HTN, age 75 or more, Diabetes Mellitus, female gender). Currently no point for heart failure
Tricuspid regurgitation, moderate in 2017, mild now
Elevated (mildly) TSH, T4 pending, per primary
HTN, off medications in the outpatient setting
Fibromyalgia
NIDDM with fasting hyperglycemia
Obesity, BMI >40, she would benefit from weight loss
JERRY on CPAP
Subjective: Feeling OK at rest. Ambulated in room and felt OK
Data:
Echo 09/15/2024:
Normal biventricular size and systolic function without regional wall motion
abnormality.
Mild concentric left ventricular hypertrophy.
No significant valvular disease.
Compared to previous echo 09/17/2016, the degree of tricuspid regurgitation has
decreased from moderate.
Med cost per case management:
'Spoke w/ Héctor/[employer] rep to review coverage and costs. All medications are covered under patient's rx plan, estimated co-pays are as follows:
Eliquis 30 days- $548.86, 90 days- $780.59
Jardiance 30 days- $552.79, 90 days- $793.89
Farxiga 30 days- $547.10, 90 days- $776.81'
Physical Exam
Vital Signs/Labs
Vital Signs
Temp Pulse Resp BP Pulse Ox
98.2 F 64 16 104/78 97
09/17/24 02:30 09/17/24 02:30 09/17/24 02:30 09/17/24 02:28 09/17/24 02:30
09/16/24 09/17/24 09/18/24
06:59 06:59 06:59
Actual Weight 114.05 kg 113.2 kg
09/15/24 00:15
09/17/24 02:36
Magnesium 1.7 mg/dl (1.6-2.3) 09/15/24 00:56
Triglycerides 82 mg/dl (10-149) 09/15/24 06:53
LDL Cholesterol, Calc 97 mg/dl 09/15/24 06:53
VLDL Cholesterol, Calc 16 mg/dl (0-30) 09/15/24 06:53
HDL Cholesterol 45 mg/dl 09/15/24 06:53
TSH 5.17 uIU/ml (0.47-4.68) H 09/15/24 06:53
Free T4 1.28 ng/dl (0.78-2.19) 09/16/24 07:20
09/14/24
17:50
Rec-G-Vhfczbkrkgq Pept 2150
LAB Results
09/14/24
17:50
Troponin I < 0.012
Physical Exam
Constitutional: No acute distress
EENT: Anicteric
Cardiovascular: Rhythm & rate is regular and Pedal edema is absent
Respiratory: Respiratory effort normal and Lungs clear to auscul.
GI: Soft and Distention absent
Neuro/Psych: Alert and Oriented
Data Reviewed
-
Date of Service: September 17, 2024
[2024-09-17 07:49] LABS: Glucose - Point of Care 130 mg/dl (70-99)
[2024-09-17] MEDS: CYMBALTA DELAYED RELEASE 60 MG PO (08:38)
[2024-09-17] MEDS: TIKOSYN 500 MCG PO (08:38)
[2024-09-17] MEDS: MAG-TAB SR 84 MG PO (08:39)
[2024-09-17] MEDS: GLUCOPHAGE 500 MG PO ×2 (08:39→16:40)
[2024-09-17] MEDS: COLACE 100 MG PO (08:39)
[2024-09-17] MEDS: TOPROL XL 25 MG PO (08:39)
[2024-09-17] MEDS: THERAGRAN 1 TABLET PO (08:39)
[2024-09-17] MEDS: ELIQUIS 5 MG PO ×2 (08:39→20:11)
--- NOTE | 2024-09-17 10:26 | W.PN.HOSP.TC ---
Addendum entered and electronically signed by Jacinto Whiting MD 09/17/24 14:21:
.
Original Note:
Today's Communication/Plan
-
see plan
Assessment / Plan
Assessment / Plan
Gen: NAD, AAOx3.
Eyes: EOMI, PERRLA, no scleral icterus.
Neck: supple.
CV: remains RRR, +S1/S2, no m/r/g.
Resp: faint rales R base
Abd: +BS, soft, NT, ND
Skin: No rashes. remains without LE edema.
Neuro: CN 2-12 intact, non-focal.
Psych: Normal mood and affect.
CXR: No acute cardiopulmonary process.
Echo: Normal BiV sz/fxn, no RWMA. Mild concentric left ventricular hypertrophy. No significant valvular disease. Compared to previous echo 09/17/2016, the degree of tricuspid regurgitation has decreased from moderate.
Paroxysmal atrial fibrillation:
-presented with SANCHEZ
-proBNP 2150
-CXR without pulm edema
-echo above
-was on Lasix 20mg IV BID, now stopped
-SANCHEZ likely related to afib with rapid rates with exertion. She may have had acute HFpEF on admission due to afib with RVR.
-BB/eliquis started
-TSH 5.17, fT4 1.28
-Tikosyn started 09/16/24
-QTc this AM 518ms
-discussed with cardiology
-cont tele (intensive monitoring of Tikosyn start)
Other problems:
DM2: a1c 6.6%. Pioglitazone stopped as it can cause/worsen CHF. SSI/accuchecks. cont Metformin.
Insomnia: cont Ambien
Fibromyalgia: cont duloxetine
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
h/o pancreatic cyst
JERRY on CPAP
Former smoker
FULL/Lovenox
Anticipated Discharge: > 48 hours
Subjective/Interval History
-
Date of Service: September 17, 2024
Objective Data
-
Labs:
Laboratory Results
09/17/24
02:36
Sodium 138
Potassium 3.6
Chloride 103
Carbon Dioxide 28
BUN 35 H
Creatinine 0.9
Glucose 130 H
Calcium 9.4
Vital Signs:
Vital Signs
Temp Pulse Resp BP Pulse Ox
97.7 F 59 16 128/99 95
09/17/24 07:45 09/17/24 07:45 09/17/24 07:45 09/17/24 07:45 09/17/24 08:49
I&O
09/16/24 09/17/24 09/18/24
06:59 06:59 06:59
Intake Total 840 / 840
Output Total 1050 / 1050
Balance -210 / -210
--- NOTE | 2024-09-17 12:00 | W.PN.UPDATE ---
Addendum entered and electronically signed by Thaddeus Mckeon MD 09/17/24 13:46:
I reviewed more tele and on tele some QTc are over 500.
I will stop dofetilide.
I reviewed my recommendation that she proceed to early ablation of PAF/PAT/PAFlutter.
Will use short term Amio to start now and stop 6-12 weeks post ablation.
Will use single agent Amio w/o metoprolol. 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
She understands her arrhythmia will not be fully controlled at discharge tomorrow morning as Amio takes time to build up and work.
My office will arrange OV with Dr. Mccall to discuss risks/benefits/alternatives of ablation.
Plan:
- Stopped dofetilide
- Started Amio 200 mg tabs 2 tabs BID for 14 days then 1 tab daily to continue for 6-12 weeks post ablation\\
- Home tomorrow with imperfect arrhythmia control
- Early ablation
Total time carding for this patinet today exceeded 55 minutes.
Original Note:
Update Note
Progress Note Update
Computer is slighlty overestimating QT/QTc. On my manual measurement the QTc is just under 500. Will lower Dofetilide to 250 mcg BID with next dose 09/18/2024 and perfer home be mid to late morning of 09/20/2024.
[2024-09-17 12:05] LABS: Glucose - Point of Care 145 mg/dl (70-99)
--- NOTE | 2024-09-17 13:46 | CM ---
Reviewed chart. Mrs. Person was transferred to IVU. Met with Mrs. Person to review discharge plans. She states prior to admission she resides with her spouse in a one story home with one step to enter. She states prior to admission she was
independent with ambulation in the home and uses a single point cane in the community. She states she is independent with adls. She states she has a single point cane at home. She states she has a prescription plan and uses [facility].
Telephone call to [facility] in [place] to see if they have Dofetilide 250 mcg in stock. [facility] in [place] has Dofetilide 250 mcg in stock. Telephone call to Yina Erwin, ([phone]) to check on co-pay for Dofetilide. She still has her
$590.00 deductible that has to be met. So her first script for Dofetilide would be $262.21 then after she mets her deductible her do-pay would be $81.13. She could use the Good RX coupon and get the Dofetilide for $30.00, Placed the Good Rx.
coupon in her red discharge folder. Will need a three day script to send to . Pharmacy so a three day supply to go home with her. Also checked the co-pay for Eliquis after she mets her deductible. Her Eliquis co-pay would be $116.11. Farxiga
co-pay after she meets her deductible would be $114.85 a month and Jardiance co-pay after her deductible would be $120.54 a month. Placed the free coupons for Eliquis, Farxiga and Jardiance in her red discharge folder. Medical work-up in progress.
The discharge plan is to return home with her spouse when medically stable.
--- NOTE | 2024-09-17 14:03 | PN.CDI ---
Addendum entered and electronically signed by Jacinto Whiting MD 09/17/24 14:22:
Documentation is complete
Original Note:
CDI
- -
CDI:
Physician Documentation Request
Admit Date: 09/15/24 07:50
Dear Doctor Johanne,
09/17 hospitalist progress note states 'was on lasix 20 mg IV BID now stopped. SANCHEZ likely related to afib with rapid rates with exertion. She may have had acute HFpEF on admission due to afib with RVR '
09/16 cardiology consult states ' I do not think she has heart failure but will need to keep an open mind'
09/17 cardiology note states 'Dyspnea seems to be from ectopy and not heart failure'
09/14 BNP 2150
Please clarify the following:
____ - acute diastolic heart failure was present on admission
____ - acute diastolic heart failure was ruled out
____ - acute diastolic heart failure is still a likely, suspected, probable diagnosis
____ - Other
Use of terms such as suspected, likely, concern for, or probable (associated with a specific diagnosis that is being evaluated, monitored, or treated as if it exists) are acceptable and can be coded in the inpatient setting, when documented at the
time of discharge.
Thank you,
Janessa Krause RN, BSN
CDI Specialist
tiger text
Please use your independent medical judgment in providing your response.
[2024-09-17 16:21] LABS: Glucose - Point of Care 107 mg/dl (70-99)
--- NOTE | 2024-09-17 18:32 | PTCARENOTE ---
Pt OOB in her room at times otherwise resting. She denies any discomfort. Telemetry shows rare runs of sinus rhythm and frequent atrial tachycardia with frequent ectopy, triplets and pairs. Pt seen by Mike Jade tikosyn discontinued, plan for
amiodarone tonight and an ablation in the next few weeks. Pt states understanding.
[2024-09-17] MEDS: PACERONE 400 MG PO (20:11)
[2024-09-17] MEDS: COLACE PO (20:11)
[2024-09-17 21:33] LABS: Glucose - Point of Care 125 mg/dl (70-99)
--- NOTE | 2024-09-17 22:45 | PTCARENOTE ---
Patient received at change of shift resting in the bed. Reports no pain. Denies palpitations. States she only notices her HR is high when she looks at the monitor if it alarms. Discussed starting oral amiodarone, first dose given as ordered. The
patient overall offers no complaints. Sinus rhythm with frequent PVCs including couplets and triplets noted, PACs also noted on telemetry. Oxygen saturation 95-96% on room air. Call mccloud within reach. Plan of care discussed. Care ongoing.
[2024-09-17] MEDS: AMBIEN 10 MG PO (22:50)
[2024-09-18 03:05] VITALS: BP 98/46
[2024-09-18 03:13] VITALS: BMI 44.5
[2024-09-18 03:18] VITALS: BP 99/74
[2024-09-18 03:23] LABS: Hemoglobin 12.6 g/dL (12.0-16.0); Mean Corp Hgb Conc. 33.2 g/dL (33.0-37.0); Mean Corpuscular Hgb 30.7 pg (27.0-31.0); Mean Corpuscular Volume 92.5 fL (81.0-99.0); Mean Platelet Volume 9.5 fL (7.4-10.4); Platelet Count 208 10^3/uL (130-400); Red Blood Cell Count 4.11 10^6/uL (4.20-5.40); Red Cell Dist. Width 13.7 % (11.5-14.5); White Blood Cell Count 7.6 10^3/uL (4.8-10.8)
[2024-09-18 03:50] LABS: Blood Urea Nitrogen 32 mg/dl (7-17); Calcium 9.4 mg/dl (8.4-10.2); Carbon Dioxide 26 mmol/L (22-30); Chloride 105 mmol/L (98-107); Estimated Creatinine Clearance 69 ml/min; Glucose 131 mg/dl (70-99); Magnesium 1.6 mg/dl (1.6-2.3); Potassium 3.8 mmol/L (3.5-5.1); Sodium 139 mmol/L (135-145); eGFR > 60.00
[2024-09-18 07:36] VITALS: BP 119/57
--- NOTE | 2024-09-18 07:41 | W.PN.HOSP.TC ---
Today's Communication/Plan
-
d/c
Assessment / Plan
Assessment / Plan
Gen: remains NAD, AAOx3.
Eyes: EOMI, PERRLA, no scleral icterus.
Neck: supple.
CV: continues to remain RRR, +S1/S2, no m/r/g.
Resp: CTAB anteriorly
Abd: +BS, soft, NT, ND
Skin: No rashes. remains without LE edema.
Neuro: CN 2-12 intact, non-focal.
Psych: Normal mood and affect.
CXR: No acute cardiopulmonary process.
Echo: Normal BiV sz/fxn, no RWMA. Mild concentric left ventricular hypertrophy. No significant valvular disease. Compared to previous echo 09/17/2016, the degree of tricuspid regurgitation has decreased from moderate.
Paroxysmal atrial fibrillation:
-presented with SANCHEZ
-proBNP 2150
-CXR without pulm edema
-echo above
-was on Lasix 20mg IV BID, now stopped
-SANCHEZ likely related to afib with rapid rates with exertion. She may have had acute HFpEF on admission due to afib with RVR.
-BB/eliquis started
-TSH 5.17, fT4 1.28
-Tikosyn started 09/16/24, stopped 09/17/24 with QTc>500ms
-cardiology following and discussed with Dr. Mckeon 09/17/24
-Amio 400mg BID x 14 days followed by 200mg daily. Plans for early ablation.
-Discussed with Dr. Casanova 09/18/24, medically cleared for d/c
Other problems:
DM2: a1c 6.6%. Pioglitazone stopped as it can cause/worsen CHF. SSI/accuchecks. cont Metformin.
Insomnia: cont Ambien
Fibromyalgia: cont duloxetine
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
h/o pancreatic cyst
JERRY on CPAP
Former smoker
FULL/Lovenox
Total time spent on d/c = 34 min. This included today's physical exam, progress note, review of laboratory and diagnostic data, preparation of discharge documents and prescriptions, and discussions about the pt's hospital course and discharge plan
with the patient and other spanish medical interpreter involved in the patient's care.
Anticipated Discharge: Today
Subjective/Interval History
-
Date of Service: September 18, 2024
Denies CP/SOB.
Objective Data
-
Labs:
Laboratory Results
09/18/24
03:11
WBC 7.6
Hgb 12.6
Hct 38.0
Plt Count 208
Sodium 139
Potassium 3.8
Chloride 105
Carbon Dioxide 26
BUN 32 H
Creatinine 0.8
Glucose 131 H
Calcium 9.4
Vital Signs:
Vital Signs
Temp Pulse Resp BP Pulse Ox
98.2 F 83 16 119/57 95
09/18/24 07:36 09/18/24 07:35 09/18/24 07:36 09/18/24 07:36 09/18/24 07:36
I&O
09/17/24 09/18/24 09/19/24
06:59 06:59 06:59
Intake Total 400 / 400
Balance 400 / 400
[2024-09-18 08:00] LABS: Glucose - Point of Care 132 mg/dl (70-99)
[2024-09-18] MEDS: PACERONE 400 MG PO (08:07)
[2024-09-18] MEDS: MAG-TAB SR 84 MG PO (08:07)
[2024-09-18] MEDS: GLUCOPHAGE 500 MG PO (08:07)
[2024-09-18] MEDS: CYMBALTA DELAYED RELEASE 60 MG PO (08:07)
[2024-09-18] MEDS: THERAGRAN 1 TABLET PO (08:07)
[2024-09-18] MEDS: ELIQUIS 5 MG PO (08:08)
[2024-09-18] MEDS: COLACE 100 MG PO (08:08)
--- NOTE | 2024-09-18 09:54 | PTCARENOTE ---
Assumed care. Patient AO x3. NSR, A-tachycardia/A-fib, couplets, short runs of VT. Denies pain, mildly dyspneic with ambulation, POX 95% at rest on room air. Fine rales left base, +2 non-pitting edema. Walking in the room using a her cane, gait
steady, cedric mccloud in reach
[2024-09-18 10:54] VITALS: BP 101/37
[2024-09-18 10:56] VITALS: BP 96/57
--- NOTE | 2024-09-18 12:09 | W.DCSUMMARY ---
Discharge Summary
Discharge Data
Date of Admission: 09/15/24
Date of Discharge: 09/18/24
-
Pending Results: No
Hospital Course
Primary diagnoses:
Paroxysmal atrial fibrillation
Secondary diagnoses:
Type 2 diabetes mellitus
Insomnia
Morbid obesity due to excess calories
Fibromyalgia
Essential hypertension
h/o pancreatic cyst
Obstructive sleep apnea on CPAP
Former smoker
Consultants:
Cardiology/EP
Imaging:
CXR: No acute cardiopulmonary process.
Echo: Normal BiV sz/fxn, no RWMA. Mild concentric left ventricular hypertrophy. No significant valvular disease. Compared to previous echo 09/17/2016, the degree of tricuspid regurgitation has decreased from moderate.
Hospital course: 79-year-old female presented with a chief complaint of dyspnea on exertion as outlined in the H&P on admission. Chest x-ray was without pulmonary edema and proBNP was 2150. Patient was briefly placed on IV Lasix which was stopped.
Echocardiogram above. She was found to be in paroxysmal atrial fibrillation. She was placed on beta-tom and Eliquis. The patient was started on Tikosyn on 09/16/24 which was stopped 09/17/24 with QTc>500ms. She was transitioned to Amio 400mg
BID x 14 days followed by 200mg daily with plans for early ablation. Her dyspnea on exertion was likely related to paroxysmal A-fib with rapid rates with exertion. She may have had acute HFpEF on admission due to afib with RVR but I think this is
less likely. The patient was discharged in medically stable condition.
Discharge Plan
-
Patient Disposition: Home (Routine Discharge)
Discharge Diagnosis/Procedures: Paroxysmal atrial fibrillation
Condition: Good
Diet: Diabetic, Carb Controlled
Activity: As tolerated
Driving Restrictions: As prior to admission
Referrals:
Loreta Mccall MD [Active, Cardiology] - 09/29/24 11:20 am
Ramses Martinez DO [Family Provider] - in less than 1 week
Prescriptions:
New
amiodarone 200 mg Tablet
200 mg PO DAILY Qty: 30 0RF
Rx Instructions:
start after 2 weeks of loading dose
Eliquis 5 mg Tablet
5 mg PO BID Qty: 60 0RF
amiodarone 200 mg Tablet
400 mg PO BID Qty: 54 0RF
Rx Instructions:
Two week loading dose period
metformin 500 mg Tablet
500 mg PO BID@0800,1700 Qty: 60 0RF
Continued
duloxetine 60 mg Capsule,Delayed Release(Dr/Ec)
60 mg PO DAILY
zolpidem 6.25 mg Tablet,Ext Release Multiphase
12.5 mg PO HSPRN PRN (Reason: Insomnia)
Centrum Silver Women 8 mg iron-400 mcg-50 mcg Tablet
1 tab PO DAILY
acetaminophen [Tylenol] 325 mg Tablet
650 mg PO Q6HPRN PRN (Reason: MILD PAIN)
magnesium oxide 200 mg magnesium Tablet
200 mg PO DAILY
Discontinued
pioglitazone 30 mg Tablet
30 mg PO DAILY
Discharge Orders:
Discharge Patient (As Directed); Ordered 09/18/24
Ordered By: Jacinto Whiting
Care Plan Goals
Care Plan Goals:
Problem: Readiness for enhanced knowledge related to diagnosis and treatment plan
Goal: Understand your diagnosis and treatment plan needs, including medications if applicable.
Instructions: Know your diagnosis, underlying causes and treatment plan options, including medications if applicable. Consult with your health care team to learn about your diagnosis and treatment plan, including medications if applicable.
Discharge Date and Time
Print Language: MALAY
--- NOTE | 2024-09-18 12:17 | PTCARENOTE ---
Patient discharged to home. Instructions reviewed, she verbalized understanding. IV and telemetry removed. Patient escorted to [facility] for discharge home with her
== END 2024-09-18 12:28 | disposition home or self-care (01) | DRG 309 ==
LOC: IVU 07:50
PROVIDERS: Emergency Medicine; Nurse Practitioner Family; Nurse Practitioner Gerontology; ADMITTING PHYSICIAN Internal Medicine; ATTENDING PHYSICIAN Internal Medicine; CONSULT PHYSICIAN Internal Medicine Cardiovascular Disease; EMERGENCY PHYSICIAN Emergency Medicine; FAMILY PHYSICIAN Family Medicine; OTHER PHYSICIAN Internal Medicine Cardiovascular Disease
PROC: 3E0DXRZ Introduction of Antiarrhythmic into Mouth and Pharynx, External Approach (ICD-10-PCS; 2024-09-16)
DX: I48.0 Paroxysmal atrial fibrillation (principal); K86.2 Cyst of pancreas; Z68.41 Body mass index [BMI] 40.0-44.9, adult; I48.92 Unspecified atrial flutter; I11.0 Hypertensive heart disease with heart failure; E11.9 Type 2 diabetes mellitus without complications; G89.4 Chronic pain syndrome; G47.33 Obstructive sleep apnea (adult) (pediatric); E66.01 Morbid (severe) obesity due to excess calories; G47.00 Insomnia, unspecified; M79.7 Fibromyalgia; Z96.643 Presence of artificial hip joint, bilateral; Z90.49 Acquired absence of other specified parts of digestive tract; Z87.891 Personal history of nicotine dependence; Z80.3 Family history of malignant neoplasm of breast; Z82.49 Family history of ischemic heart disease and other diseases of the circulatory system; Z80.8 Family history of malignant neoplasm of other organs or systems
CPT/HCPCS: 71046; 80048; 80053; 80061; 82962; 83036; 83735; 83880; 84436; 84439; 84443; 84484; 85025; 85027; 86803; 93005; 93306; 96374; 99285

== ENCOUNTER → 2024-10-01 11:02 | Outpatient (REF) | payer MEDICARE, OTHER, SELFPAY | LOC: RAD 11:02 | PROVIDERS: ATTENDING PHYSICIAN Internal Medicine Cardiovascular Disease; FAMILY PHYSICIAN Family Medicine | DX: I48.0 Paroxysmal atrial fibrillation (principal) | CPT/HCPCS: 75572; Q9967 ==

== ENCOUNTER 2024-12-14 05:56 | Inpatient (IN) | payer MEDICARE, OTHER, SELFPAY ==
[2024-11-26 12:45] VITALS: BMI 44.9
[2024-11-26 13:28] LABS: Hematocrit 41.2 % (37.0-47.0); Hemoglobin 13.3 g/dL (12.0-16.0); Mean Corp Hgb Conc. 32.3 g/dL (33.0-37.0); Mean Corpuscular Volume 95.4 fL (81.0-99.0); Platelet Count 186 10^3/uL (130-400); Red Cell Dist. Width 13.2 % (11.5-14.5)
[2024-11-26 13:31] LABS: INR 1.24; PT 15.9 Sec (11.4-14.6)
[2024-11-26 13:44] LABS: Nucleated Red Blood Cells % 0 %
[2024-11-26 13:45] LABS: ALT (SGPT) 13 U/L (0-35); AST (SGOT) 21 U/L (14-36); Albumin 4.3 g/dl (3.5-5.0); Alkaline Phosphatase 49 U/L (38-126); Blood Urea Nitrogen 16 mg/dl (7-17); Calcium 8.8 mg/dl (8.4-10.2); Carbon Dioxide 31 mmol/L (22-30); Chloride 103 mmol/L (98-107); Estimated Creatinine Clearance 68 ml/min; Glucose 126 mg/dl (70-99); Potassium 4.3 mmol/L (3.5-5.1); Sodium 139 mmol/L (135-145); Total Protein 6.8 g/dl (6.3-8.2); eGFR > 60.00
[2024-12-14] VITALS (18 sets, daily range): BP systolic 112–155; BP diastolic 48–99; BMI 44.1
[2024-12-14 07:02] LABS: Glucose - Point of Care 131 mg/dl (70-99)
[2024-12-14 08:42] LABS: ACT-LR - POC 281 Seconds (116-155)
[2024-12-14 08:49] LABS: Glucose - Point of Care 131 mg/dl (70-99)
[2024-12-14 09:04] LABS: ACT-LR - POC 363 Seconds (116-155)
[2024-12-14 09:33] LABS: ACT-LR - POC 337 Seconds (116-155)
--- NOTE | 2024-12-14 10:48 | ITS.CL.ABL ---
Rf Manager - Ablation
Ablation
Procedure Report:
AFIB ablation / Watchman implantation:
Ms. Person is a very pleasant 79 yr old woman, with symptomatic paroxysmal AF, typical atrial flutter on Amiodarone, with CHADSVascc score of 6 on Eliquis with h/o recurrent falls and high risk of bleeding is recommended a placement of Watchman with
atrial fibrillation ablation.
Date of the Procedure:
12/14/2024
Indications:
Paroxysmal atrial fibrillation, recurrent falls and bleeding with high CHADSVasc score
Pre-Operative Diagnosis:
Paroxysmal atrial fibrillation, recurrent falls and bleeding with high CHADSVasc score
Post-Operative Diagnosis:
Paroxysmal atrial fibrillation, recurrent bleeding with high CHADSVasc score
Procedure Performed:
Atrial fibrillation ablation with Pulsed-Field approach for pulmonary vein isolation
Typical atrial flutter ablation with cavotricuspid isthmus (CTI) ablation
left atrial appendage occlusion with Watchman implantation (24 mm Watchman FLX Pro left atrial appendage closure device)
Performing Physician:
Ablations and TSSP: Loreta Mccall MD
Watchman Implant: Jesus Manuel Hrap MD PHD
ANTONIO: Walt Juarez M.D.
Assistants:
EP staff
Anesthesia:
See anesthesia records
Detailed Description of the Procedure:
Written informed consent was obtained from the patient after a full explanation of the risks and benefits of the procedure including the risks of sedation and anesthesia.
The patient was brought to the electrophysiology laboratory in stable condition in fasting state. Continuous electrocardiographic and hemodynamic monitoring was initiated.
The initial rhythm was sinus bradycardia with intermittent junctional escape.
The procedure site was meticulously prepared with surgical scrub and allowed to dry with no pooling. Sterile draping was applied to cover the procedure site. The image intensifier was draped with sterile bag and positioned over the patient. After
infusion of local anesthetic, vascular access was obtained under ultrasound guidance and sheaths were placed over guide wire as detailed below.
Sheath and Catheter Placement:
The following catheters / sheaths were placed
Sheaths:
��������� 17Fr steerable sheath (Faradrive�, [employer]) in right femoral that later swapped to Watchman delivery sheath
��������� 9Fr in right femoral vein
��������� 7Fr in right femoral vein
Catheters:
��������� EDIL HD Grid mapping catheter � at locations of RA, LA
��������� Farawave� PFA catheter
��������� ICE catheter - at locations of RA, SVC, and RV.
��������� Watchman catheter
��������� Bard Decapolar catheter.
Heparin bolus given and drip started.
Intracardiac ECHO:
An 8-Paraguayan AcuNav intracardiac ECHO (ICE) probe was advanced through the 9-Paraguayan sheath in the right femoral vein into the right atrium under fluoroscopic and ICE ultrasound image guidance and a baseline ECHO study was performed. The left atrial
size was normal. There was moderate tricuspid regurgitation.
There was normal appearing aortic valve. There was normal left ventricular systolic functions. There is trace pericardial effusion. All the four veins were identified and has flow identified. There was sluggish flow noted in the PHILOMENA. There was no
PHILOMENA clot noted.
During the procedure, ICE was used for monitoring of complications, guidance of trans-septal puncture, monitor the catheter position and tracking ablation lesions. No change in the pericardial space noted throughout the procedure.
Electroanatomic mapping of the right atrium:
A J-tipped guidewire was advanced through the 8-Paraguayan sheath in the right femoral vein into the superior vena cava under fluoroscopic and ICE guidance. The 8-Paraguayan sheath was exchanged for an Faradrive sheath which was advanced into the superior
vena cava.
Using the HD grid catheter advanced through Faradrive sheath into the right atrium, an electroanatomic map (EAM) of the right atrium was created using the EDIL mapping system.
�
There was normal HV conduction noted at baseline at 44 ms.
Ablation # 1: Typical Atrial Flutter Ablation:
Patient had a clear CTI dependent atrial flutter and plan was made to proceed with flutter ablation before transseptal puncture.
A 100 mcg of nitroglycerin was given. Glycopyrrolate 0.2 mg was given prior to the placement of ablation. The CTI ablation was done Farawave PFA ablation catheter in the cavotricuspid isthmus from the tricuspid annulus to the IVC ridge. The annular
area was ablated using the Farawave in [place] formation. The farawave was turned into disc shape and was curved into a J shape to place ablation at the CTI to the Eustachian ridge.
��������������� -Bidirectional block was confirmed across the CTI line with differential pacing.
��������������� -Double potentials were spaced greater than 98 msec apart.
��������������� -The conduction time across the CTI line from proximal CS pacing was 115 msec.
��������������� -EAM of the right atrium was obtained with coronary sinus pacing and showed a line of block at the CTI.
��������������� -The time interval just lateral to the ablation lesions was 115 msec and the lateral wall was 92 msec
��������������� - All these maneuvers confirmed the block at the CTI line.
- Post ablation HV interval was unchanged at 45msec
Then attention was given to atrial fibrillation ablation.
Trans-septal Puncture:
Heparin was initiated and infused to maintain appropriate ACT. A pigtail guidewire was advanced through the 8-Paraguayan sheath in the right femoral vein into the superior vena cava under fluoroscopic and ICE guidance. The 9-Paraguayan sheath was exchanged
for a Faradrive sheath which was advanced into the superior vena cava. A trans-septal RF pigtail via Faradrive connect system was utilized to perform the trans-septal puncture. The apparatus was withdrawn until it was in contact with the fossa
ovalis. The position was adjusted based on fluoroscopy and ultrasound images from ICE. Under fluoroscopic, hemodynamic and ICE ultrasound guidance, left atrium was cannulated by applying RF energy. Once atrial septum was cannulated, the pigtail wire
was advanced through the needle into the left atrium. The guide wire was advanced into the left superior pulmonary vein. Both the sheath and the dilator was advanced into the left atrium. The dilator with the needle was withdrawn. Blood was
aspirated from the Faradrive sheath and arterial blood confirmed. The sheath was flushed. Saline injection noted into the left atrium on ICE. The mapping catheter was advanced in the sheath into the left pulmonary vein. Left atrial pressure was
measured.
3D Electroanatomic Mapping:
Using the HD Grid catheter advanced through sheath into the left atrium, an electroanatomic map (EAM) of the left atrium was created using [employer] mapping system. The map was used for localization of catheter position and tacking of ablation
lesions.
The EAM of the left atrium showed 4 pulmonary veins with all 4 veins electrically connected to the body the LA. It showed scattered extensive scar on the posterior and anterior wall of the LA. The LA was mildly dilated in size.
Following the EAM, preparation were made for ablation.
Ablation:
Ablation # 2: Pulmonary vein Isolation:
Using phorus pulsed wave ablation system, pulmonary vein isolation was achieved. First the ablation catheter was placed in the LSPV and ostial ablation lesions were performed in a counter clock lares approach all around the PV ostium
circumferentially. Then the catheter was placed on the antral location and multiple ablation lesions were placed circumferentially on the antrum of the vein.
In the similar fashion, the LIPV were isolated.
Then the catheter was moved to right sided veins. The ostial and antral ablations were placed as noted above.
EPS and Confirmation of the PVI and bidirectional block:
Following achievement of entrance block at the pulmonary veins, pacing from the HD catheter in each of the four veins at 10 milliamps for 2 milliseconds showed entrance and exit block. All PVI were rechecked at the end of the case and remained
isolated. Entrance and exit block were demonstrated in all veins.
Post ablation Electroanatomic mapping:
Once ablation was completed, the EAM of the LA was done again in sinus rhythm with excellent demarcation of LA myocardium and isolated antral tissue. There was no significant scarring noted in the LA.
The PHILOMENA had healthy signals and was not isolated.
Watchman implantation:
Using the trans-septal RF pigtail, the Faradrive sheath was swapped with Watchman delivery sheath over the RF pigtail. A curved pig tail was advanced over the guide wire into the left atrium and the wire was removed.
Left atrial appendage atriography:
The pigtail was advanced into the PHILOMENA and was confirmed on fluoroscopy and ANTONIO. The contrast was injected and the PHILOMENA shape was recorded in BALDWIN /Caudal view (20/20 degrees). The size of the PHILOMENA was again checked and confirmed reviewing the ANTONIO and
the fluoroscopy along with previously obtained CT scan images.
Watchman Deployment:
The Watchman delivery sheath was advanced into the PHILOMENA over the pigtail till the right marker was at the location of the orifice line marked on the screen. The pigtail was removed and the Watchman delivery system was advanced through the sheath into
the PHILMOENA till it was aligned with the outer sheath marker inside the PHILOMENA. The watchman sheath was clicked with the outer sheath. Once acceptable location achieved, the outer sheath was pulled back keeping the device steady at the PHILOMENA location till a
ball of the device was formed under fluoroscopic guidance. The whole system was advanced further into the PHILOMENA till adequate depth is achieved into the PHILOMENA. The PHILOMENA occluder was deployed and expanded adequately anchoring to the PHILOMENA. The device was
kept anchored with stable pressure to that location for 10 seconds.
The Watchman was noted to have shoulder out and was not completely inside the appendage and decision was made to recapture and implant deeper inside the PHILOMENA. The watchman was successfully recaptured and was adjusted to get a deeper location and
deployed as noted above. The new location has much better appearance and the device had minimal shoulder present now after the tug test.
The ANTONIO image confirmed adequate expansion. The tug test was done that showed the device is anchored well and is not able to come out. The compression was 28%, 18% and 22% on the three sides. There was no significant leak noted on the Doppler via
ANTONIO. A contrast was injected showing adequate location of the device at the mouth of the PHILOMENA and no leak demonstrated.�
The device was deployed by unscrewing the Watchman device and releasing from the connecting wire. The wire was pulled back into the sheath and the sheath was pulled out of the LA.
Implanted device:
WATCHMAN FLX Pro � 24mm
Procedure End
ANTONIO study was done again that showed no epicardial accumulation that was unchanged from earlier. A repeated images showed no change in the pericardial space. No complications noted.
Following the completion of the deployment, catheters were removed. Protamine 40 mg was given at the end of the procedure and ACT was checked repeatedly. The sheath was removed and hemostasis achieved with Figure of 8 and manual compression after
acceptable ACT is achieved.
Left atrial Pressure:
Pre- Mean LA pressure was 12mmHg
Post-Mean LA pressure was 12mmHg
Estimated Blood loss:
<10 cc
Specimens Removed:
None.
Implants / Devices:
None
Urine output:
None
Packs / Drains/ Tubes:
None
Instrument / Sponge Count Correct:
Yes
Complications of the Procedure:
None
Condition of Patient at Time of Transfer:
Hemodynamically stable with no neurological or vascular compromise.
Summary:
Successful atrial fibrillation ablation with Pulsed Field approach for pulmonary vein isolation and Typical atrial flutter ablation (CTI)
Successful implantation of the left atrial occlusion device (WATCHMAN FLX Pro� 24mm)
Post procedure Plan for anticoagulation:
Continue Eliquis for 3 months.
Based on 3 months ANTONIO, will plan to switch Eliquis to ASA 81 mg indefinitely.
Figures from the Procedure:
Figure 1: The electroanatomic mapping (EAM) of the left atrium with bipolar voltage (purple indicates normal electrical activity with bonner as no myocardial muscle electric activity indicating a line of block or scar.
RA - Pre
[2024-12-14] MEDS: ANESTHETIC LOZENGE 1 LOZENGE PO ×2 (11:27→21:52)
[2024-12-14 11:35] LABS: Glucose - Point of Care 168 mg/dl (70-99)
[2024-12-14 16:46] LABS: Glucose - Point of Care 187 mg/dl (70-99)
[2024-12-14] MEDS: PACERONE 200 MG PO (17:27)
[2024-12-14] MEDS: ELIQUIS 5 MG PO (17:28)
[2024-12-14] MEDS: ELIQUIS PO (17:29)
[2024-12-14] MEDS: CYMBALTA DELAYED RELEASE PO (17:35)
[2024-12-14] MEDS: NOVOLOG FLEXPEN-LOW RESISTANCE 1 UNITS SC (17:50)
--- NOTE | 2024-12-14 18:47 | PTCARENOTE ---
Rec't Pt s/p ablation and watchman, A,A+Ox3, R femoral dsg D+I. +1 bilat LE edema, + DP pulses. denies pain.
[2024-12-14 20:55] LABS: Glucose - Point of Care 209 mg/dl (70-99)
--- NOTE | 2024-12-14 21:11 | ITS.CL.PN ---
Interactive Multimedia Designer - Procedure Note
Procedure
Procedure Note:
WATCHMAN LEFT ATRIAL APPENDAGE OCCLUSION REPORT
Date of Procedure: 12/14/2024
Referring: Dr. Ramses Martinez DO
Indication: Atrial fibrillation with high bleeding risk and high stroke risk
Operators: Jesus Manuel Harp MD, PhD (interventional cardiology); Dr. Loreta Mccall MD (electrophysiology); Dr. Nir Juarez MD (cardiac imaging)
Anesthesia: general anesthesia provided by the anesthesia staff
PROCEDURE: left atrial appendage occlusion with a 24 mm Watchman FLX
HEMODYNAMIC DATA
LA 12 mmHg
PROCEDURE NARRATIVE:
The patient was intubated and sedated by anesthesiology and then prepped and draped in standard sterile fashion. Ablation for atrial fibrillation and atrial flutter was performed by Dr. Mccall as described in his separate operative note including
transseptal puncture. At the conclusion of the ablation, a ANTONIO probe was placed by cardiology and imaging performed demonstrating no left atrial appendage thrombus and no pericardial effusion.
Over wire in the left atrium, the ablation sheath was exchanged for the Watchman sheath. A 5F pigtail catheter was advanced through the sheath and placed in the left atrial appendage, and an appendage gram was performed demonstrating anatomy
suitable for a 24 mm Watchman FLX device. The device was prepped on the back table, the pigtail catheter removed, and the device delivered via the sheath to the left atrial appendage by Dr. Matt Harp. The device was deployed slowly under
continuous fluoroscopic and ANTONIO visualization. After deployment, ANTONIO imaging was performed to assess PASS criteria. The device demonstrated excellent positioning, anchor stability on tug test, appropriate sizing with 28%, 18%, and 22% compression on
the three sides, and appropriate seal with no leak at 0, 45, 90, or 135 degrees. Given PASS criteria were met, the device was then released.
The delivery system retracted back into the sheath and removed from the body. The sheath was retracted into the right atrium with ANTONIO demonstrating no significant R-L shunt or pericardial effusion. The ICE catheter was removed from the body. The
sheaths were removed and the venotomy closed with [id number] knot. The patient was extubated and tolerated the procedure well.
CONCLUSIONS: successful deployment of a 24 mm Watchman FLX device under fluoroscopic and ANTONIO guidance as part of combined Afib/Aflutter ablation and Watchman procedure
RECOMMENDATIONS:
1. anticoagulation with Eliquis 5 mg BID
2. repeat ANTONIO in 3 months
Signed: Jesus Manuel Harp MD, PhD
[2024-12-14] MEDS: MELATONIN 5 MG PO (21:51)
[2024-12-14] MEDS: TYLENOL 650 MG PO (22:17)
--- NOTE | 2024-12-14 23:14 | PTCARENOTE ---
Received patient at change of shift. SR on the monitor HR in the 70s. Pt complains of headache, PRN Tylenol administered as per order, see MAR. Pt complains of sore throat, PRN Lozenge administered as per order, see MAR. Call [facility] within reach.
[2024-12-15 04:28] VITALS: BP 122/55
[2024-12-15 04:40] VITALS: BMI 43.6
[2024-12-15 04:45] LABS: Hematocrit 35.6 % (37.0-47.0); Hemoglobin 11.7 g/dL (12.0-16.0); Mean Corp Hgb Conc. 32.9 g/dL (33.0-37.0); Mean Corpuscular Volume 94.4 fL (81.0-99.0); Platelet Count 198 10^3/uL (130-400); Red Cell Dist. Width 14.3 % (11.5-14.5)
[2024-12-15 05:07] LABS: Blood Urea Nitrogen 26 mg/dl (7-17); Calcium 9.0 mg/dl (8.4-10.2); Carbon Dioxide 30 mmol/L (22-30); Chloride 104 mmol/L (98-107); Estimated Creatinine Clearance 61 ml/min; Glucose 166 mg/dl (70-99); Magnesium 2.0 mg/dl (1.6-2.3); Potassium 5.0 mmol/L (3.5-5.1); Sodium 137 mmol/L (135-145); eGFR > 60.00
[2024-12-15] MEDS: TYLENOL 650 MG PO (05:22)
[2024-12-15 07:11] VITALS: BP 119/68
[2024-12-15 07:14] LABS: Glucose - Point of Care 167 mg/dl (70-99)
--- NOTE | 2024-12-15 08:09 | W.PN.CD ---
Addendum entered and electronically signed by JOSIE Seals 12/15/24 09:24:
Pt c/o severe throat discomfort and swelling o/n. There is moderate ecchymosis to right and roof in the back of throat. Dr. Mccall noted that there was some difficultly with ANTONIO guide insertion and most likely d/t trauma during the case. She states
it is improving this morning she is able to swallow better. She will call if symptoms worsen or has difficultly swallowing.
Original Note:
Today's Communication / Plan
-
- Discharge home today
Impression / Plan
-
Ms. Person is a very pleasant 79 yr old woman, with symptomatic paroxysmal AF, typical atrial flutter on Amiodarone, with CHADSVascc score of 6 on Eliquis with h/o recurrent falls and high risk of bleeding s/p AF ablation with PVI; typical atrial
flutter ablation with CTI ablation, and Watchman implant 24mm device.
Atrial fibrillation
- s/p PVI - farapulse
- minimal scar in the LA
- On Amiodarone and Eliquis.
- Conitue both for 3 months.
- ANTONIO in 3 months.
Typical atrial flutter
- s/p CTI ablation using farapulse system
- Block at CTI demonstrated.
Bleeding
- s/p Watchman deployed
- Eliquis for 3 months
- Groin are healing well
- No hematoma.
- Dischare home today
Physical Exam
Vital Signs/Labs
Vital Signs
Temp Pulse Resp BP Pulse Ox
97.6 F 65 18 122/55 97
12/15/24 07:15 12/15/24 04:30 12/15/24 07:15 12/15/24 04:28 12/15/24 07:15
12/14/24 12/15/24 12/16/24
06:59 06:59 06:59
Actual Weight 112.945 kg 111.5 kg
12/15/24 04:33
12/15/24 04:33
PT 15.9 Sec (11.4-14.6) H 11/26/24 12:55
INR 1.24 11/26/24 12:55
Magnesium 2.0 mg/dl (1.6-2.3) 12/15/24 04:33
Physical Exam
Constitutional: No acute distress and Comfortable
EENT: Anicteric and Moist mucous membranes
Cardiovascular: Rhythm & rate is regular, Pedal edema is absent and JVD pressure is normal
Respiratory: Respiratory effort normal, Lungs clear to auscul. and Wheeze Absent
GI: Soft, Distention absent and Non tender
Neuro/Psych: Alert, Oriented and AO x 3
Data Reviewed
-
Date of Service: December 15, 2024
Medical Decision Making: Reviewed Test Results, Test Interpretation and Review of Case with other Provider
Labs: Labs Reviewed by me
Old Records: Reviewed
[2024-12-15] MEDS: NOVOLOG FLEXPEN-LOW RESISTANCE 1 UNITS SC (08:14)
[2024-12-15] MEDS: PACERONE 200 MG PO (08:34)
[2024-12-15] MEDS: ELIQUIS 5 MG PO (08:34)
[2024-12-15] MEDS: CYMBALTA DELAYED RELEASE 60 MG PO (08:34)
--- NOTE | 2024-12-15 08:46 | PTCARENOTE ---
Addendum entered by Shelly Howard RN 12/15/24 08:54:
Pt w/ bruising and redness in back of throat. Pt reports it feels sore but better than last night. No swelling. Pt denies trouble breathing. CHILD CARE COOK aware.
Original Note:
Assumed care of pt from dayshift RN. Pt 1 day s/p watchman and ablation. Pt AAOx3. SR on the tele monitor. HR 60s. BP stable. Palpable pulses throughout. +2 B/L LE edema present. Pt on RA. POX 97%. Breath sounds audible and equal B/L. Denies SOB.
Abdomen nontender. +BS x4. Pt tolerating diet. Voiding spontaneously. PIV x1 intact. Right groin site intact - soft/no hematoma. Pt updated w/ plan. Independent in room w/ cane. See worklist for full nursing assessment and interventions. Call [facility]
within reach.
[2024-12-15 08:54] LABS: Glycohemoglobin (HgbA1c) 6.6 % (4.0-5.6)
--- NOTE | 2024-12-15 09:42 | W.DS.TRANS ---
DC Summary - Product Manager
-
Discharge Instructions:
Discharge Diagnosis/Procedures AFib, s/p ablation + watchman device implant
Diet Low Cholesterol,Diabetic, Carb Controlled
Driving Restrictions No driving for 24 hours
Others Tests YOUR ANTONIO IS SHEDULED FOR 03/16/2025. YOU WILL
RECEIVE A PHONE CALL WITH INSTRUCTIONS AND TIME
OF ARRIVAL.
Instructions:
Stand-Alone Forms: DC Instructions- Cath/EP Lab
Changes to Home Medications: Yes
Discharge Medications:
DC Medications w/original date entered in [employer]
acetaminophen 325 mg tablet (Tylenol) 650 mg PO Q6HPRN PRN MILD PAIN 09/14/24
duloxetine 60 mg capsule,delayed release 60 mg PO DAILY Fibromyalgia 09/14/24
grqynona-wopt-bkbz 8 mg-folic 400 mcg-K 50 mcg-lutein 300 mcg tablet (Centrum Silver Women) 1 tab PO DAILY Supplement 09/14/24
zolpidem 6.25 mg tablet,extended release,multiphase 12.5 mg PO HSPRN PRN Insomnia 09/14/24
amiodarone 200 mg tablet 200 mg PO DAILY #30 tabs 09/18/24
apixaban 5 mg tablet (Eliquis) 5 mg PO BID #60 tabs 09/18/24
pioglitazone 30 mg tablet (Actos) 30 mg PO DAILY #1 tab 12/15/24
Home Medication Changes
stop metformin resume actos temporarily until seen by PCP
Pending Results: No
[2024-12-15 11:27] VITALS: BP 142/76
--- NOTE | 2024-12-15 12:05 | PTCARENOTE ---
Discharge order from Zena Osborne acknowledged. Pt updated and spoke with family. A-fib packet given and teaching complete. Family at the bedside. Discharge instructions read and medications reviewed. Questions encouraged and answered. PIV x1
removed. Pt changed into own clothes. Pt transported to car by volunteer via wheelchair ~1205.
--- NOTE | 2024-12-15 12:37 | CM ---
pt is prev indep, lives with her husb in a 2 story home . no dc planning needs or dme's. plan is for dc to home when medically stable.
== END 2024-12-15 12:11 | disposition home or self-care (01) | DRG 317 ==
LOC: IVU 05:56
PROVIDERS: Internal Medicine Cardiovascular Disease; Nurse Practitioner; Student in an Organized Health Care Education/Training Program; ADMITTING PHYSICIAN Internal Medicine Cardiovascular Disease; FAMILY PHYSICIAN Family Medicine
PROC: 02583ZF Destruction of Conduction Mechanism using Irreversible Electroporation, Percutaneous Approach (ICD-10-PCS; 2024-12-14)
PROC: 4A023FZ Measurement of Cardiac Rhythm, Percutaneous Approach (ICD-10-PCS; 2024-12-14)
PROC: 02L73DK Occlusion of Left Atrial Appendage with Intraluminal Device, Percutaneous Approach (ICD-10-PCS; 2024-12-14)
PROC: B24BZZ4 Ultrasonography of Heart with Aorta, Transesophageal (ICD-10-PCS; 2024-12-14)
PROC: 02K83ZZ Map Conduction Mechanism, Percutaneous Approach (ICD-10-PCS; 2024-12-14)
PROC: 4A0234Z Measurement of Cardiac Electrical Activity, Percutaneous Approach (ICD-10-PCS; 2024-12-14)
DX: I48.0 Paroxysmal atrial fibrillation (principal); Z00.6 Encounter for examination for normal comparison and control in clinical research program; I50.32 Chronic diastolic (congestive) heart failure; Z68.41 Body mass index [BMI] 40.0-44.9, adult; K91.89 Other postprocedural complications and disorders of digestive system; R13.10 Dysphagia, unspecified; I48.3 Typical atrial flutter; R29.6 Repeated falls; I25.10 Atherosclerotic heart disease of native coronary artery without angina pectoris; I11.0 Hypertensive heart disease with heart failure; G47.33 Obstructive sleep apnea (adult) (pediatric); E11.21 Type 2 diabetes mellitus with diabetic nephropathy; K21.9 Gastro-esophageal reflux disease without esophagitis; K58.1 Irritable bowel syndrome with constipation; M79.7 Fibromyalgia; G47.00 Insomnia, unspecified; E66.01 Morbid (severe) obesity due to excess calories; Y83.8 Other surgical procedures as the cause of abnormal reaction of the patient, or of later complication, without mention of misadventure at the time of the procedure; Z86.718 Personal history of other venous thrombosis and embolism; Z91.199 Patient's noncompliance with other medical treatment and regimen due to unspecified reason; Z79.84 Long term (current) use of oral hypoglycemic drugs; Z79.01 Long term (current) use of anticoagulants; Z87.891 Personal history of nicotine dependence
CPT/HCPCS: 33340; 36415; 80048; 80053; 82962; 83036; 83735; 85025; 85027; 85347; 85610; 86850; 86900; 86901; 93005; 93355; 93655; 93656; C1730; C1732; C1733; C1759; C1766; C1769; C1892; C1894; Q9967

== ENCOUNTER → 2025-03-07 10:34 | Outpatient (REF) | payer MEDICARE, OTHER, SELFPAY | LOC: CATH 10:34 | PROVIDERS: ATTENDING PHYSICIAN Internal Medicine Cardiovascular Disease; FAMILY PHYSICIAN Family Medicine; OTHER PHYSICIAN Internal Medicine Cardiovascular Disease | DX: I48.0 Paroxysmal atrial fibrillation (principal) | CPT/HCPCS: 93005 ==

== ENCOUNTER 2025-03-16 06:15 | Day surgery (SDC) | payer MEDICARE, OTHER, SELFPAY ==
[2025-03-07 10:45] VITALS: BMI 45.8
[2025-03-16 07:38] LABS: Glucose - Point of Care 121 mg/dl (70-99)
== END 2025-03-16 08:45 | disposition home or self-care (01) ==
LOC: CATH 06:15
PROVIDERS: ATTENDING PHYSICIAN Internal Medicine Cardiovascular Disease; FAMILY PHYSICIAN Family Medicine; OTHER PHYSICIAN Internal Medicine Cardiovascular Disease
DX: I48.0 Paroxysmal atrial fibrillation (principal); I48.92 Unspecified atrial flutter; Z86.718 Personal history of other venous thrombosis and embolism; I10 Essential (primary) hypertension; F41.9 Anxiety disorder, unspecified; F32.A Depression, unspecified; I25.10 Atherosclerotic heart disease of native coronary artery without angina pectoris; G47.33 Obstructive sleep apnea (adult) (pediatric); K86.2 Cyst of pancreas; J98.4 Other disorders of lung; G47.00 Insomnia, unspecified; K58.9 Irritable bowel syndrome, unspecified; E11.9 Type 2 diabetes mellitus without complications; M19.90 Unspecified osteoarthritis, unspecified site; Z91.81 History of falling; R26.2 Difficulty in walking, not elsewhere classified; M48.00 Spinal stenosis, site unspecified; Z90.49 Acquired absence of other specified parts of digestive tract; Z96.643 Presence of artificial hip joint, bilateral; Z96.653 Presence of artificial knee joint, bilateral; Z79.01 Long term (current) use of anticoagulants; Z79.85 Long-term (current) use of injectable non-insulin antidiabetic drugs; Z79.899 Other long term (current) drug therapy
CPT/HCPCS: 93312; 93320; 93325; 82962

== ENCOUNTER 2025-04-17 10:43 | Emergency (ER) | payer MEDICARE, OTHER, SELFPAY ==
[2025-04-17 10:49] VITALS: BP 100/86
--- NOTE | 2025-04-17 12:14 | ED.GENMED ---
History of Present Illness
General
Chief Complaint: Musculo-Skeletal Complaint
Source: patient
Time Seen by Provider: 04/17/25 11:38
History of Present Illness
History of Present Illness:
80-year-old female with past medical history of hypertension, A-fib and loo-urfswta-[id number] diabetes presenting to the emergency department for evaluation after she stubbed her foot onto the corner of a chair, since then has had pain, ecchymosis
and edema, somewhat improved today but due to the persistent nature of the symptoms was recommended by her daughter to come to the ER to be further evaluated. No other injuries were sustained.
Past History
Past History
ED Past Medical History: Arrthythmia, HTN and NIDDM; Negative Valvular disease
ED Past Surgical History: Cardiac, Cholecystectomy, and Orthopedic
Social History
Tobacco: Non-smoker
Alcohol: None
Drug: None
Personal:
Living: with family
Employment: Retired
Review of Systems
Review of Systems
All Other Systems: ROS reviewed and negative except as documented in HPI and ROS
Phy Exam
Physical Exam
Physical Exam:
GENERAL: Alert , in no apparent distress
EYE: conjunctiva clear
Head: Normocephalic atraumatic
NECK: Supple,
ENT: mmm.
LUNGS: no acute respiratory distress
NEUROLOGICAL: Alert and oriented
SKIN: Warm and dry, ecchymosis and soft tissue swelling to the left foot but no focal bony tenderness
MUSCULOSKELETAL: well perfused. Easily palpable pedal and tibial pulse. Cap refill less than 2 seconds
PSYCH: Normal and appropriate interaction.
Scores
Heart Failure Risk
Heart Failure Risk Score: Not Applicable
Heart Score for Chest Pain Patients
STEMI patient?: Not applicable
Withdrawal Assessment of Alcohol
Withdrawal Assessment Completed?: Not applicable
Course
Orders/Labs/Results
Orders:
Orders
04/17/25 10:50
CR Foot - Left Min 3 Views Urgent
Comment:
Reason For Exam: injury
Vital Signs
Initial and Last Documented VS:
Initial Vital Signs
Temp Pulse Resp BP Pulse Ox
97.9 F 77 16 100/86 96
04/17/25 10:49 04/17/25 10:49 04/17/25 10:49 04/17/25 10:49 04/17/25 10:49
Last Documented Vital Signs
Temp Pulse Resp BP Pulse Ox
97.9 F 77 16 100/86 96
04/17/25 10:49 04/17/25 10:49 04/17/25 10:49 04/17/25 10:49 04/17/25 12:15
MDM/Problems Addressed
Differential Diagnosis Includes:
Contusion
Sprain
Fracture
MDM/Problems Addressed:
80-year-old female presenting the ER for evaluation of left foot pain after hitting her foot on a chair 2 days ago. Bruising noted. X-ray ordered, no fracture seen. Advised continued ice and elevation, Tylenol for pain. Outpatient follow-up as
needed.
*Radiology
Radiology exam reviewed: preliminary read by ED provider (No acute fracture, degenerative changes seen)
*Pulse Oximetry
SaO2: 96
Oxygen Mode of Delivery: Room air
Patient hypoxic: no
*Critical Care Note
Total Time (30-74mins, 75-104mins- exclusive of procedures): Not Applicable
ED Attending Note
-
Portions of this chart may have been created with voice recognition software.� Occasional wrong word or��sound alike� substitutions may have occurred due to the inherent limitations of voice recognition software.
Discharge Plan
Departure
Patient Disposition: Home (Routine Discharge)
Date of Disposition: 04/17/25
Time of Disposition: 12:15
Patient with high blood pressure during this ER visit?: No
Discharge Problem:
Contusion of foot, left
Instructions: Contusion (DC)
Prescriptions:
No Action
duloxetine 60 mg Capsule,Delayed Release(Dr/Ec)
60 mg PO DAILY
zolpidem 6.25 mg Tablet,Ext Release Multiphase
12.5 mg PO HSPRN PRN (Reason: Insomnia)
Centrum Silver Women 8 mg iron-400 mcg-50 mcg Tablet
1 tab PO DAILY
acetaminophen [Tylenol] 325 mg Tablet
650 mg PO Q6HPRN PRN (Reason: MILD PAIN)
amiodarone 200 mg Tablet
200 mg PO DAILY Qty: 30 0RF
Eliquis 5 mg Tablet
5 mg PO BID Qty: 60 0RF
pioglitazone [Actos] 30 mg tablet
30 mg PO DAILY Qty: 1 0RF
Mounjaro 5 mg/0.5 mL Pen Injector
5 mg SC Q2W
Referrals:
Ramses Martinez DO [Family Provider, Family Practice]
Interventions
Interventions:
*General Assessment Last Done: 04/17/25 10:49
*Neglect/Abuse Screening Last Done: 04/17/25 10:49
*Risk Screen - Suicide (C-SSRS) Last Done: 04/17/25 10:49
*Nursing Disposition Last Done: 04/17/25 12:24
ED-Musculoskeletal Assessment Last Done: 04/17/25 12:23
Discharge Date and Time
Discharge Date/Time: 04/17/25 12:31
Print Language: ICELANDIC
== END 2025-04-17 12:31 | disposition home or self-care (01) ==
LOC: EMR 10:43
PROVIDERS: EMERGENCY PHYSICIAN Emergency Medicine; FAMILY PHYSICIAN Family Medicine
DX: S90.32XA Contusion of left foot, initial encounter (principal); W22.03XA Walked into furniture, initial encounter; E11.9 Type 2 diabetes mellitus without complications; I48.91 Unspecified atrial fibrillation; I10 Essential (primary) hypertension; Z79.84 Long term (current) use of oral hypoglycemic drugs; Z79.85 Long-term (current) use of injectable non-insulin antidiabetic drugs
CPT/HCPCS: 99283; 73630